=== PATIENT | male | born 1960 | race Caucasian/White ===

== ENCOUNTER 2017-02-05 11:15 | Outpatient (RCR) | payer OTHER ==
[~2017-02-05 11:15] MED LIST: ALB2.5NEB INH; ALBU17IN INH; ALDA25TA2 PO; AMLO10TA2 PO; ASPI1TAB PO; ASPI81CH PO; ATOR1TAB18 PO; ATOR40TA PO; CALC1CAP31 PO; CARV12.5 PO; CETI10TA PO; CLAR10CA3 PO; CORITAB5 PO; DOCU10CA PO; FLEX10TA2 PO; IMIT50TA PO; K-TA10TA2 PO; LIPI80TA PO; LISI40TAB PO; LOPR0.77 EX; MAGN400C PO; MAGN400T2 PO; METF500T PO; MIRA3350 PO; MULTLIQ7 PO; NYST5000 TOP; PROT1TAB2 PO; Pantoprazole Sodium PO; SENO8.6T10 PO; SUCR1TA PO; ZYRT10CA PO
== END 2017-02-08 ==
LOC: M PT 11:15
PROVIDERS: ATTEND Orthopaedic Surgery
DX: Z51.89 Encounter for other specified aftercare (principal); S50.01XA Contusion of right elbow, initial encounter; X58.XXXA Exposure to other specified factors, initial encounter; Y92.89 Other specified places as the place of occurrence of the external cause; Y93.89 Activity, other specified; Y99.8 Other external cause status

== ENCOUNTER 2017-03-07 11:00 | Outpatient (RCR) | payer OTHER | END 2017-03-10 | LOC: M PT 11:00 | PROVIDERS: ATTEND Orthopaedic Surgery | DX: Z51.89 Encounter for other specified aftercare (principal); S50.01XA Contusion of right elbow, initial encounter; X58.XXXA Exposure to other specified factors, initial encounter; Y92.89 Other specified places as the place of occurrence of the external cause; Y93.89 Activity, other specified; Y99.8 Other external cause status ==

== ENCOUNTER 2017-04-04 09:15 | Outpatient (RCR) | payer OTHER | END 2017-04-10 | LOC: M PT 09:15 | PROVIDERS: ATTEND Orthopaedic Surgery | DX: Z51.89 Encounter for other specified aftercare (principal); S50.01XA Contusion of right elbow, initial encounter; X58.XXXA Exposure to other specified factors, initial encounter; Y92.89 Other specified places as the place of occurrence of the external cause; Y93.89 Activity, other specified; Y99.8 Other external cause status ==

== ENCOUNTER 2017-04-11 11:09 | Outpatient (RCR) | payer OTHER | END 2017-04-12 12:02 | disposition home or self-care (01) | LOC: M PT 11:09 | PROVIDERS: ATTEND Orthopaedic Surgery | DX: Z51.89 Encounter for other specified aftercare (principal); S50.01XA Contusion of right elbow, initial encounter; S40.011A Contusion of right shoulder, initial encounter; X58.XXXA Exposure to other specified factors, initial encounter; Y92.9 Unspecified place or not applicable; Y93.9 Activity, unspecified; Y99.9 Unspecified external cause status ==

== ENCOUNTER → 2017-05-09 | Outpatient (REF) | payer OTHER ==
[~2017-05-09] MED LIST changes: -ATOR1TAB18 PO; -ATOR40TA PO; +ATOR40TA75 PO; +ATOR80TA59 PO; +FLUT1SPR2; +KETO10TAB PO; +MACR100C43 PO; -METF500T PO; +METF500T13 PO; +SENN8.6C PO; +ZOFR4TAB3 PO
[2017-05-09 12:13] LABS: BASO % 0.4 % (0.0-1.0); EOS % 0.7 % (0.0-3.0); LARGE UNSTAINED CELL # 0.2 K/mm3 (0.0-0.4); LARGE UNSTAINED CELL % 2.7 % (0.0-4.0); LYMPH # 1.4 K/mm3 (1.5-4.5); LYMPH % 22.4 % (24.0-44.0); MEAN CORPUSCULAR VOLUME 81.8 fl (80.0-96.0); MONO # 0.4 K/mm3 (0.0-0.8); MONO % 6.3 % (0.0-5.0); NEUTROPHILS # 4.2 K/mm3 (1.8-7.7); NEUTROPHILS % 67.5 % (36.0-66.0); PLATELET COUNT, AUTOMATED 219 k/mm3 (150-450); RED CELL DISTRIBUTION WIDTH 13.6 % (11.5-14.5); WHITE BLOOD COUNT 6.2 K/mm3 (4.0-10.0)
[2017-05-09 12:38] LABS: ALBUMIN 4.1 GM/DL (3.2-5.2); ALBUMIN/GLOBULIN RATIO 1.37 (1.00-1.93); ALKALINE PHOSPHATASE 86 U/L (45-117); ALT/SGPT 30 U/L (12-78); ANION GAP 4 MEQ/L (8-16); AST/SGOT 20 U/L (15-37); BILIRUBIN,TOTAL 0.8 MG/DL (0.2-1.0); BLOOD UREA NITROGEN 18 MG/DL (7-18); CALCIUM LEVEL 9.4 MG/DL (8.5-10.1); CARBON DIOXIDE LEVEL 33 MEQ/L (21-32); CHLORIDE LEVEL 105 MEQ/L (98-107); CHOLESTEROL LEVEL 110 MG/DL (<200); CREATININE FOR GFR 1.26 MG/DL (0.70-1.30); GLOMERULAR FILTRATION RATE > 60.0 (>56); GLUCOSE, FASTING 144 MG/DL (70-105); POTASSIUM SERUM 4.1 MEQ/L (3.5-5.1); SODIUM LEVEL 142 MEQ/L (136-145); TOTAL PROTEIN 7.1 GM/DL (6.4-8.2); TRIGLYCERIDES LEVEL 109 MG/DL (<150)
== END ==
LOC: M SFHCPLAZ 08:41
PROVIDERS: ATTEND Nurse Practitioner Family
DX: G47.33 Obstructive sleep apnea (adult) (pediatric) (principal); I10 Essential (primary) hypertension; E11.9 Type 2 diabetes mellitus without complications

== ENCOUNTER 2017-05-11 20:47 | Emergency (ER) | payer OTHER ==
[~2017-05-11] VITALS: Ht 185.4 cm; Wt 110.0 kg
[~2017-05-11 20:47] MED LIST changes: -FLUT1SPR2; -KETO10TAB PO; -MACR100C43 PO; -SENN8.6C PO; -ZOFR4TAB3 PO
[2017-05-11] MEDS ORDERED: CLAR10CA3 PO (21:06)
[2017-05-11] MEDS ORDERED: SENN8.6C PO (21:06)
[2017-05-11] MEDS ORDERED: SUCR1TA PO (21:06)
[2017-05-11] MEDS ORDERED: ONDANSETRON 4MG/2ML VIAL (J2405) IV ONE (22:15)
[2017-05-11] MEDS ORDERED: NS 500 ML IV ONE (22:15)
[2017-05-11] MEDS ORDERED: fentaNYL 100 MCG/2 ML INJECTION (J3010) IV ONE (22:15)
[2017-05-11 23:01] LABS: BASO % 0.4 % (0.0-1.0); EOS # 0.1 K/mm3 (0.0-0.50); EOS % 1.2 % (0.0-3.0); LARGE UNSTAINED CELL # 0.1 K/mm3 (0.0-0.4); LARGE UNSTAINED CELL % 2.7 % (0.0-4.0); LYMPH # 2.1 K/mm3 (1.5-4.5); LYMPH % 38.3 % (24.0-44.0); MEAN CORPUSCULAR HEMOGLOBIN 26.9 pg (27.0-33.0); MEAN CORPUSCULAR HGB CONC 34.2 g/dl (32.0-36.5); MEAN CORPUSCULAR VOLUME 78.8 fl (80.0-96.0); MONO # 0.4 K/mm3 (0.0-0.8); MONO % 7.2 % (0.0-5.0); NEUTROPHILS # 2.6 K/mm3 (1.8-7.7); NEUTROPHILS % 50.2 % (36.0-66.0); PLATELET COUNT, AUTOMATED 191 k/mm3 (150-450); RED CELL DISTRIBUTION WIDTH 13.8 % (11.5-14.5); WHITE BLOOD COUNT 5.2 K/mm3 (4.0-10.0)
[2017-05-11 23:10] LABS: INR 1.11
[2017-05-11 23:24] LABS: ALBUMIN 3.6 GM/DL (3.2-5.2); ALBUMIN/GLOBULIN RATIO 1.29 (1.00-1.93); ALKALINE PHOSPHATASE 75 U/L (45-117); ALT/SGPT 25 U/L (12-78); ANION GAP 6 MEQ/L (8-16); AST/SGOT 13 U/L (15-37); BILIRUBIN,DIRECT 0.2 MG/DL (0.0-0.2); BILIRUBIN,TOTAL 0.6 MG/DL (0.2-1.0); BLOOD UREA NITROGEN 21 MG/DL (7-18); CALCIUM LEVEL 9.1 MG/DL (8.5-10.1); CARBON DIOXIDE LEVEL 30 MEQ/L (21-32); CHLORIDE LEVEL 107 MEQ/L (98-107); CREATININE FOR GFR 1.16 MG/DL (0.70-1.30); GLOMERULAR FILTRATION RATE > 60.0 (>56); GLUCOSE, FASTING 100 MG/DL (70-105); POTASSIUM SERUM 3.8 MEQ/L (3.5-5.1); SODIUM LEVEL 143 MEQ/L (136-145); TOTAL PROTEIN 6.4 GM/DL (6.4-8.2)
[2017-05-12] MEDS ORDERED: ISOVUE-370 76% 100ML VIAL (Q9967) As Ordered ONE (00:38)
--- NOTE | 2017-05-12 01:30 | REPUSA ---
CT of the abdomen and pelvis with contrast Clinical statement: Pain. Technique: Multiple axial CT images were obtained from the base of the lungs through the floor of the pelvis utilizing 5 mm axial slices after administration of nonionic intravenous contrast. Coronal an d sagittal reconstructions were also obtained. Comparison: 03/06/2016. Findings: Chest: The visualized lung bases are clear. Abdomen: The liver, pancreas, kidneys, gallbladder, and adrenal glands are unremarkable. The spleen c urrently measures 14.1 cm in maximal diameter, and is otherwise unremarkable. There are several large bilateral renal cysts. The aorta is within normal limits. There is no evidence of abdominal lymphade nopathy or ascites. Pelvis: The bowel is unremarkable, with no obstructive or inflammatory changes. The urinary bladder i s within normal limits. The other pelvic structures appear grossly intact. There is no evidence of pe lvic lymphadenopathy or ascites. Bones: There are no suspicious osseous abnormalities seen. Impression: No acute abnormality to explain the patient's pain. The spleen appears unremarkable. Simp le bilateral renal cysts.
[2017-05-12 02:10] VITALS: BP 119/73
[2017-05-12] MEDS ORDERED: ZOFR4TAB3 PO (02:25)
== END 2017-05-12 02:51 | disposition home or self-care (01) ==
LOC: M ED 20:47
DX: R10.12 Left upper quadrant pain (principal); I10 Essential (primary) hypertension; Z79.82 Long term (current) use of aspirin; Z79.899 Other long term (current) drug therapy; Z79.84 Long term (current) use of oral hypoglycemic drugs; Z88.5 Allergy status to narcotic agent; Z88.6 Allergy status to analgesic agent

== ENCOUNTER 2017-06-13 17:28 | Emergency (ER) | payer OTHER ==
[~2017-06-13] VITALS: Ht 188 cm; Wt 111.4 kg
[~2017-06-13 17:28] MED LIST changes: -FLUT1SPR2; -KETO10TAB PO; -MACR100C43 PO
[2017-06-13] MEDS ORDERED: KETOROLAC 30 MG/ML VIAL (J1885) IV ONE (18:00)
[2017-06-13] MEDS ORDERED: METOCLOPRAMIDE INJ 10MG/2ML VIAL (J2765) IV ONE (18:00)
[2017-06-13] MEDS ORDERED: NS 500 ML IV ONE (18:00)
[2017-06-13 18:14] LABS: BASO % 0.4 % (0.0-1.0); EOS # 0.1 K/mm3 (0.0-0.50); EOS % 1.2 % (0.0-3.0); LARGE UNSTAINED CELL # 0.2 K/mm3 (0.0-0.4); LARGE UNSTAINED CELL % 3.2 % (0.0-4.0); LYMPH # 2.1 K/mm3 (1.5-4.5); LYMPH % 29.2 % (24.0-44.0); MEAN CORPUSCULAR HGB CONC 34.3 g/dl (32.0-36.5); MEAN CORPUSCULAR VOLUME 78.6 fl (80.0-96.0); MONO # 0.5 K/mm3 (0.0-0.8); MONO % 7.5 % (0.0-5.0); NEUTROPHILS # 3.7 K/mm3 (1.8-7.7); NEUTROPHILS % 58.5 % (36.0-66.0); PLATELET COUNT, AUTOMATED 218 k/mm3 (150-450); RED CELL DISTRIBUTION WIDTH 13.6 % (11.5-14.5); WHITE BLOOD COUNT 6.4 K/mm3 (4.0-10.0)
[2017-06-13 18:41] LABS: ERYTHROCYTE SEDIMENTATION RATE 7 mm/hr (0-20)
--- NOTE | 2017-06-13 18:50 | REPUSA ---
HISTORY: HEADACHE. TECHNIQUE: Axial CT of head without contrast. DLP= 836.2 mGy-cm FINDINGS: Ventricles and sulci are of normal size for this age group. Azar-white matter differentiati on is intact. There is no evidence of intracranial mass, mass effect, hemorrhage, or cystic lesion id entified. There is no detectable evidence of infarct. No bony lesions are seen in the calvarium or sk ull base. Paranasal sinuses and mastoid sinuses are clear. IMPRESSION: Negative noncontrast head CT examination.
[2017-06-13 20:01] LABS: CALCIUM LEVEL 9.1 MG/DL (8.5-10.1); CREATININE FOR GFR 1.57 MG/DL (0.70-1.30); GLOMERULAR FILTRATION RATE 48.9 (>56); POTASSIUM SERUM 3.8 MEQ/L (3.5-5.1)
[2017-06-13 20:24] VITALS: BP 123/73
== END 2017-06-13 20:26 | disposition home or self-care (01) ==
LOC: M ED 17:28
DX: G43.909 Migraine, unspecified, not intractable, without status migrainosus (principal); E11.9 Type 2 diabetes mellitus without complications; Z79.82 Long term (current) use of aspirin; Z79.84 Long term (current) use of oral hypoglycemic drugs; Z79.899 Other long term (current) drug therapy; Z88.6 Allergy status to analgesic agent; Z88.8 Allergy status to other drugs, medicaments and biological substances; Z88.5 Allergy status to narcotic agent
CPT/HCPCS: 70450; 80048; 85025; 85652; 96361; 96374; 96375; 99283; J1885; J2765

== ENCOUNTER → 2017-06-13 | Outpatient (REF) | payer OTHER ==
[~2017-06-13] MED LIST changes: +FLUT1SPR2; +KETO10TAB PO; +MACR100C43 PO; +SENN8.6C PO; +ZOFR4TAB3 PO
== END ==
LOC: M SFHCPLAZ 16:55
PROVIDERS: ATTEND Family Medicine
DX: R35.0 Frequency of micturition (principal)

== ENCOUNTER 2017-08-18 15:18 | Emergency (ER) | payer OTHER ==
[~2017-08-18] VITALS: Ht 185.4 cm; Wt 105.0 kg
[2017-08-18] MEDS ORDERED: FLUT1SPR2 (15:42)
[2017-08-18] MEDS ORDERED: KETOROLAC 30 MG/ML VIAL (J1885) IV ONE (19:00)
[2017-08-18] MEDS ORDERED: ONDANSETRON 4MG/2ML VIAL (J2405) IV ONE (19:15)
[2017-08-18 19:32] LABS: BASO % 0.1 % (0.0-1.0); EOS # 0.1 10^3/uL (0.0-0.50); EOS % 1.3 % (0.0-3.0); IMMATURE GRANULOCYTE % 0.1 % (0-0); LYMPH # 1.7 10^3/uL (1.5-4.5); LYMPH % 25.5 % (24.0-44.0); MEAN CORPUSCULAR HGB CONC 32.3 g/dl (32.0-36.5); MEAN CORPUSCULAR VOLUME 80.5 fl (80.0-96.0); MONO # 0.5 10^3/uL (0.0-0.8); MONO % 7.8 % (0.0-5.0); NEUTROPHILS # 4.3 10^3/uL (1.8-7.7); NEUTROPHILS % 65.2 % (36.0-66.0); PLATELET COUNT, AUTOMATED 222 10^3/uL (150-450); RED CELL DISTRIBUTION WIDTH 14.3 % (11.5-14.5); WHITE BLOOD COUNT 6.7 10^3/uL (4.0-10.0)
[2017-08-18 19:37] LABS: ADD MANUAL DIFFER NO; DIFF SLIDE NUMBER 166
[2017-08-18 19:55] LABS: ANION GAP 7 MEQ/L (8-16); BLOOD UREA NITROGEN 22 MG/DL (7-18); CARBON DIOXIDE LEVEL 31 MEQ/L (21-32); CHLORIDE LEVEL 105 MEQ/L (98-107); CREATININE FOR GFR 1.21 MG/DL (0.70-1.30); GLOMERULAR FILTRATION RATE > 60.0 (>56); GLUCOSE, FASTING 108 MG/DL (70-105); POTASSIUM SERUM 3.7 MEQ/L (3.5-5.1); SODIUM LEVEL 143 MEQ/L (136-145)
--- NOTE | 2017-08-18 20:00 | REPUSA ---
CT of the abdomen and pelvis without contrast Clinical statement: Pain. Technique: Multiple axial CT images were obtained from the base of the lungs to the floor of the pelv is utilizing 5 mm axial slices without administration of contrast. Coronal and sagittal reconstructio ns were also obtained. Comparison: 05/12/2017. Findings: Chest: The visualized lung bases are clear. Abdomen: The kidneys are normal in size bilaterally. Bilateral simple renal cysts are stable. There i s no evidence of hydronephrosis. There is a 2 mm stone in the left kidney. The liver, spleen, pancrea s, gallbladder and adrenal glands are unremarkable. The aorta demonstrates normal caliber and contour . There is no abdominal lymphadenopathy or ascites. Pelvis: The bowel is unremarkable, with no obstructive or inflammatory changes. The appendix is josh l. The urinary bladder is within normal limits. There is no pelvic lymphadenopathy or ascites. The ot her pelvic structures appear unremarkable. Bones: There are no suspicious osseous abnormalities seen. Impression: 1. No focal abnormality to explain the patient's pain. 2. Nonobstructing left renal nephrolithiasis. Bilateral simple renal cysts. 3. No obstructive or inflammatory bowel changes.
[2017-08-18] MEDS ORDERED: MACR100C43 PO (20:22)
[2017-08-18] MEDS ORDERED: KETO10TAB PO (20:22)
[2017-08-18] MEDS ORDERED: NITROFURANTOIN (MACROBID) 100 MG CAP PO ONE (20:30)
[2017-08-18 20:44] VITALS: BP 102/65
== END 2017-08-18 20:42 | disposition home or self-care (01) ==
LOC: M ED 15:18
DX: N20.0 Calculus of kidney (principal); R10.9 Unspecified abdominal pain; N39.0 Urinary tract infection, site not specified; E11.9 Type 2 diabetes mellitus without complications; Z87.442 Personal history of urinary calculi; J45.909 Unspecified asthma, uncomplicated; H54.8 Legal blindness, as defined in USA; Z79.82 Long term (current) use of aspirin; Z79.84 Long term (current) use of oral hypoglycemic drugs; Z79.899 Other long term (current) drug therapy; Z88.5 Allergy status to narcotic agent; Z88.8 Allergy status to other drugs, medicaments and biological substances
CPT/HCPCS: 74176; 80048; 81001; 85025; 96374; 96375; 99283; J1885; J2405

== ENCOUNTER → 2017-09-26 | Outpatient (REF) | payer OTHER ==
[~2017-09-26] MED LIST changes: +FLUT1SPR2; +KETO10TAB PO; +MACR100C43 PO
[2017-09-26 13:13] LABS: ALBUMIN 3.9 GM/DL (3.2-5.2); ALBUMIN/GLOBULIN RATIO 1.34 (1.00-1.93); ALKALINE PHOSPHATASE 88 U/L (45-117); ALT/SGPT 30 U/L (12-78); ANION GAP 7 MEQ/L (8-16); AST/SGOT 18 U/L (7-37); BILIRUBIN,TOTAL 0.9 MG/DL (0.2-1.0); BLOOD UREA NITROGEN 15 MG/DL (7-18); CALCIUM LEVEL 9.1 MG/DL (8.5-10.1); CARBON DIOXIDE LEVEL 33 MEQ/L (21-32); CHLORIDE LEVEL 101 MEQ/L (98-107); CREATININE FOR GFR 1.13 MG/DL (0.70-1.30); GLOMERULAR FILTRATION RATE > 60.0 (>56); GLUCOSE, FASTING 135 MG/DL (70-105); POTASSIUM SERUM 3.8 MEQ/L (3.5-5.1); SODIUM LEVEL 141 MEQ/L (136-145); TOTAL PROTEIN 6.8 GM/DL (6.4-8.2)
== END ==
LOC: M SFHCPLAZ 10:42
PROVIDERS: ATTEND Nurse Practitioner Family
DX: I10 Essential (primary) hypertension (principal); E11.9 Type 2 diabetes mellitus without complications

== ENCOUNTER → 2017-10-01 | Outpatient (REF) | payer OTHER | LOC: M SMT 13:08 | PROVIDERS: ATTEND Nurse Practitioner Family | DX: N20.0 Calculus of kidney (principal) ==

== ENCOUNTER → 2017-10-08 | Outpatient (CLI) | payer OTHER ==
--- NOTE | 2017-10-08 12:26 | REP ---
Scrotal sonography: History: Testicular cyst. No comparison sonography. Findings: There is no evidence of intratesticular mass on either side. Right testis dimensions are 4.5 x 2.9 x 3.3 cm. Left testicular dimensions are 5.0 x 2.6 x 3.3 cm. There is a 0.4 cm cyst in the head of the epididymis on the left. There are two extra testicular cysts in the left hemiscrotum. These measure 3.2 x 1.6 x 1.6 cm and 3.7 x 1.9 x 3.2 cm. These appear to be simple cysts sonographically. There are small bilateral hydroceles. The cysts on the left may be related to septated hydrocele. There are mobile scrotoliths in the left hemiscrotum. There appear to be three of these. Testicular Doppler flow is normal to both testes. Resistive indices are 0.64 on the right and 0.66 on the left. Impression: Extra testicular cysts left hemiscrotum. Small bilateral hydroceles. No other significant abnormality. Signed by Clement Guo MD 10/08/2017 04:16 P
== END ==
LOC: M RAD 10:17
PROVIDERS: ATTEND Nurse Practitioner Family
DX: N43.3 Hydrocele, unspecified (principal); N44.2 Benign cyst of testis

== ENCOUNTER 2017-12-10 10:32 | Outpatient (RCR) | payer OTHER | END 2017-12-11 | LOC: M PT 10:32 | DX: Z51.89 Encounter for other specified aftercare (principal); M51.36 Other intervertebral disc degeneration, lumbar region; M47.896 Other spondylosis, lumbar region | CPT/HCPCS: 97110 ==

== ENCOUNTER 2017-12-17 10:15 | Outpatient (RCR) | payer OTHER | END 2018-01-08 | LOC: M PT 10:15 | DX: Z51.89 Encounter for other specified aftercare (principal); M46.1 Sacroiliitis, not elsewhere classified | CPT/HCPCS: 97010 ==

== ENCOUNTER → 2018-03-13 | Outpatient (REF) | payer OTHER ==
[2018-03-13 18:02] LABS: HEMATOCRIT 37.3 % (42.0-52.0); HEMOGLOBIN 11.9 g/dl (13.5-17.5); MEAN CORPUSCULAR HEMOGLOBIN 24.4 pg (27.0-33.0); MEAN CORPUSCULAR HGB CONC 31.9 g/dl (32.0-36.5); MEAN CORPUSCULAR VOLUME 76.4 fl (80.0-96.0); PLATELET COUNT, AUTOMATED 220 10^3/uL (150-450); RED BLOOD COUNT 4.88 10^6/uL (4.30-6.10); RED CELL DISTRIBUTION WIDTH 14.6 % (11.5-14.5); WHITE BLOOD COUNT 6.6 10^3/uL (4.0-10.0)
[2018-03-13 18:09] LABS: MAGNESIUM LEVEL 1.9 MG/DL (1.8-2.4)
== END ==
LOC: M SFHCPLAZ 14:39
DX: E11.9 Type 2 diabetes mellitus without complications (principal); E83.40 Disorders of magnesium metabolism, unspecified
CPT/HCPCS: 83735

== ENCOUNTER → 2018-04-09 | Outpatient (REF) | payer OTHER ==
[2018-04-10 11:18] LABS: FERRITIN 6 NG/ML (26-388); IRON (FE) 33 UG/DL (65-175); PERCENT SATURATION 9.3 % (19.7-50.0); TOTAL IRON BINDING CAPACITY 355 UG/DL (250-450)
== END ==
LOC: M LAB REF 10:00
DX: D64.9 Anemia, unspecified (principal)

== ENCOUNTER → 2018-07-25 | Outpatient (REF) | payer OTHER ==
[2018-07-25 12:53] LABS: ALBUMIN 3.8 GM/DL (3.2-5.2); ALBUMIN/GLOBULIN RATIO 1.41 (1.00-1.93); ALKALINE PHOSPHATASE 83 U/L (45-117); ALT/SGPT 30 U/L (12-78); ANION GAP 8 MEQ/L (8-16); AST/SGOT 23 U/L (7-37); BILIRUBIN,TOTAL 0.8 MG/DL (0.2-1.0); BLOOD UREA NITROGEN 14 MG/DL (7-18); CALCIUM LEVEL 9.2 MG/DL (8.5-10.1); CARBON DIOXIDE LEVEL 31 MEQ/L (21-32); CHLORIDE LEVEL 104 MEQ/L (98-107); CHOLESTEROL LEVEL 93 MG/DL (<200); CHOLESTEROL RISK RATIO 2.583 (<5); CREATININE FOR GFR 1.16 MG/DL (0.70-1.30); GLOMERULAR FILTRATION RATE > 60.0 (>56); GLUCOSE, FASTING 125 MG/DL (70-100); HDL CHOLESTEROL 36 MG/DL (>40); LDL CHOLESTEROL 33 MG/DL (<100); NON-HDL-C 57 MG/DL; POTASSIUM SERUM 3.3 MEQ/L (3.5-5.1); SODIUM LEVEL 143 MEQ/L (136-145); TOTAL PROTEIN 6.5 GM/DL (6.4-8.2); TRIGLYCERIDES LEVEL 120 MG/DL (<150)
[2018-07-25 12:54] LABS: ESTIMATED AVERAGE GLUCOSE 148 MG/DL (60-110); HEMOGLOBIN A1c 6.8 %
== END ==
LOC: M SFHCPLAZ 09:17
DX: E11.9 Type 2 diabetes mellitus without complications (principal); I10 Essential (primary) hypertension; E83.40 Disorders of magnesium metabolism, unspecified; N18.3 Chronic kidney disease, stage 3 (moderate); E78.5 Hyperlipidemia, unspecified

== ENCOUNTER → 2018-08-05 | Outpatient (REF) | payer OTHER | LOC: M LAB REF 18:27 | DX: D22.5 Melanocytic nevi of trunk (principal); L56.8 Other specified acute skin changes due to ultraviolet radiation | CPT/HCPCS: 88305 ==

== ENCOUNTER → 2018-11-17 | Outpatient (CLI) | payer OTHER ==
[~2018-11-17] MED LIST changes: -AMLO10TA2 PO; +AMLO10TA5 PO; +ZOFR4TAB14 PO; -ZOFR4TAB3 PO
--- NOTE | 2018-11-18 06:13 | REP ---
Clinical: Chronic renal disease stage II Technique: real time desai scale ultrasound examination using curved array transducer. Findings: The bilateral kidneys demonstrate hyperechoic echotexture and scattered cystic changes without hydronephrosis, obvious nephrolithiasis or pericholecystic fluid. Right kidney measures 12.8 x 5.5 x 6.8 cm and includes 3 cm simple upper pole cyst and 2.8 cm simple lower pole cyst. Left kidney measures 13.2 x 5.5 x 5.1 cm and includes 5.7 cm exophytic mid pole cyst, 4.6 cm medial mid pole cyst and 1.5 cm perihilar cyst. Bladder is without wall thickening or gross abnormality. Impression: Chronic renal disease with few scattered bilateral cysts. No hydronephrosis. Electronically Signed by Horace Walden MD 11/18/2018 06:05 A
== END ==
LOC: M RAD 09:59
PROVIDERS: ATTEND Internal Medicine Nephrology
DX: N18.2 Chronic kidney disease, stage 2 (mild) (principal); N28.1 Cyst of kidney, acquired

== ENCOUNTER → 2018-12-08 | Outpatient (REF) | payer OTHER ==
[2018-12-08 19:00] LABS: MALB URINE SIEMENS 49.5 MG/L; MAU/CREAT RATIO 28.2 MCG/MG (0.0-30.0)
[2018-12-08 19:25] LABS: HEMOGLOBIN A1c 7.3 %
== END ==
LOC: M SFHCPLAZ 15:48
PROVIDERS: ATTEND Family Medicine
DX: E11.9 Type 2 diabetes mellitus without complications (principal)

== ENCOUNTER → 2019-05-27 | Outpatient (REF) | payer OTHER ==
[~2019-05-27] MED LIST changes: -ASPI1TAB PO; -ASPI81CH PO; +ASPI81CH49 PO; +ASPI81TA26 PO; +LISI40TA52 PO; -LISI40TAB PO
== END ==
LOC: M SFHCPLAZ 11:15
PROVIDERS: ATTEND Family Medicine
DX: R10.9 Unspecified abdominal pain (principal)

== ENCOUNTER → 2019-07-24 | Outpatient (REF) | payer OTHER ==
[2019-07-24 12:35] LABS: ALT/SGPT 32 U/L (12-78); BILIRUBIN,TOTAL 1.1 MG/DL (0.2-1.0); BLOOD UREA NITROGEN 24 MG/DL (7-18); CALCIUM LEVEL 9.6 MG/DL (8.5-10.1); CARBON DIOXIDE LEVEL 31 MEQ/L (21-32); CHLORIDE LEVEL 105 MEQ/L (98-107); CHOLESTEROL LEVEL 87 MG/DL (<200); CHOLESTEROL RISK RATIO 2.485 (<5); CREATININE FOR GFR 1.23 MG/DL (0.70-1.30); GLOMERULAR FILTRATION RATE > 60.0 (>56); GLUCOSE, FASTING 138 MG/DL (70-100); HDL CHOLESTEROL 35 MG/DL (>40); LDL CHOLESTEROL 32 MG/DL (<100); NON-HDL-C 52 MG/DL; POTASSIUM SERUM 3.5 MEQ/L (3.5-5.1); SODIUM LEVEL 144 MEQ/L (136-145); TOTAL PROTEIN 6.2 GM/DL (6.4-8.2); TRIGLYCERIDES LEVEL 102 MG/DL (<150)
[2019-07-24 13:08] LABS: MAU/CREAT RATIO 15.2 MCG/MG (0.0-30.0)
[2019-07-24 14:21] LABS: HEMOGLOBIN A1c 6.6 %
[2019-07-29 10:56] LABS: THYROID STIMULATING HORMONE 0.569 uIU/ML (0.358-3.740)
[2019-07-29 10:58] LABS: VITAMIN B12 LEVEL 476 PG/ML (247-911)
[2019-07-29 10:59] LABS: FOLATE 13.3 NG/ML (>5.4)
== END ==
LOC: M SFHCPLAZ 09:06
PROVIDERS: ATTEND Family Medicine
DX: N18.3 Chronic kidney disease, stage 3 (moderate) (principal); E78.5 Hyperlipidemia, unspecified; I10 Essential (primary) hypertension; E11.29 Type 2 diabetes mellitus with other diabetic kidney complication

== ENCOUNTER → 2019-10-28 | Outpatient (REF) | payer OTHER | LOC: M SFHCPLAZ 15:05 | PROVIDERS: ATTEND Family Medicine | DX: E11.29 Type 2 diabetes mellitus with other diabetic kidney complication (principal); I12.9 Hypertensive chronic kidney disease with stage 1 through stage 4 chronic kidney disease, or unspecified chronic kidney disease; E80.6 Other disorders of bilirubin metabolism ==

== ENCOUNTER → 2019-12-09 | Outpatient (REF) | payer OTHER ==
[2019-12-09 09:31] LABS: HEMATOCRIT 44.9 % (42.0-52.0); HEMOGLOBIN 14.9 g/dl (13.5-17.5); MEAN CORPUSCULAR HEMOGLOBIN 28.8 pg (27.0-33.0); MEAN CORPUSCULAR HGB CONC 33.2 g/dl (32.0-36.5); MEAN CORPUSCULAR VOLUME 86.7 fl (80.0-96.0); PLATELET COUNT, AUTOMATED 186 10^3/uL (150-450); RED BLOOD COUNT 5.18 10^6/uL (4.30-6.10); WHITE BLOOD COUNT 6.6 10^3/uL (4.0-10.0)
[2019-12-09 10:01] LABS: ALBUMIN 3.9 GM/DL (3.2-5.2); ALT/SGPT 24 U/L (12-78); BILIRUBIN,TOTAL 1.1 MG/DL (0.2-1.0); BLOOD UREA NITROGEN 18 MG/DL (7-18); CALCIUM LEVEL 8.9 MG/DL (8.5-10.1); CARBON DIOXIDE LEVEL 32 MEQ/L (21-32); CHLORIDE LEVEL 107 MEQ/L (98-107); CREATININE FOR GFR 1.08 MG/DL (0.70-1.30); GLOMERULAR FILTRATION RATE > 60.0 (>56); GLUCOSE, FASTING 122 MG/DL (70-100); POTASSIUM SERUM 3.7 MEQ/L (3.5-5.1); SODIUM LEVEL 143 MEQ/L (136-145); TOTAL PROTEIN 6.5 GM/DL (6.4-8.2)
[2019-12-09 10:20] LABS: HEMOGLOBIN A1c 6.4 %
[2019-12-09 10:26] LABS: HEPATITIS B SURFACE ANTIGEN NEGATIVE (NEGATIVE)
[2019-12-09 11:38] LABS: HEPATITIS B CORE ANTIBODY IGM NEGATIVE (NEGATIVE); HEPATITIS C VIRUS ABY INDEX < 0.0 INDEX (<0.8)
[2019-12-09 11:40] LABS: HEPATITIS A ANTIBODY IGM NEGATIVE (NEGATIVE)
== END ==
LOC: M SFHCPLAZ 07:23
PROVIDERS: ATTEND Student in an Organized Health Care Education/Training Program
DX: G47.33 Obstructive sleep apnea (adult) (pediatric) (principal); I12.9 Hypertensive chronic kidney disease with stage 1 through stage 4 chronic kidney disease, or unspecified chronic kidney disease; E80.6 Other disorders of bilirubin metabolism; E11.29 Type 2 diabetes mellitus with other diabetic kidney complication

== ENCOUNTER → 2020-01-13 | Outpatient (REF) | payer OTHER | LOC: M SFHCPLAZ 10:12 | PROVIDERS: ATTEND Family Medicine | DX: Z53.9 Procedure and treatment not carried out, unspecified reason (principal) ==

== ENCOUNTER → 2020-04-26 | Outpatient (CLI) | payer OTHER ==
[~2020-04-26] MED LIST changes: -AMLO10TA5 PO; +AMLO1TAB25 PO; +FLON1SPR NARES; +LISI40TA4 PO; +PANT40TA29 PO; +SPIR-10 PO; +TAMS1CAP17 PO; +VENTAER INH; +VITA-122 PO
== END ==
LOC: M LABSMTC 11:14
PROVIDERS: ATTEND Anesthesiology
DX: Z01.818 Encounter for other preprocedural examination (principal); Z11.59 Encounter for screening for other viral diseases
CPT/HCPCS: C9803; U0003

== ENCOUNTER 2020-04-29 11:16 | Day surgery (SDC) | payer OTHER ==
[~2020-04-29] VITALS: Ht 185.4 cm; Wt 103.8 kg
[~2020-04-29 11:16] MED LIST changes: +AMLO10TA5 PO; -AMLO1TAB25 PO; +LISI40TA PO; -LISI40TA4 PO; +NS 1,000 ML IV ONE; -PANT40TA29 PO; +PANT40TA3 PO
[2020-04-29] MEDS ORDERED: propofoL 200 MG/20 ML VIAL As Ordered ONE ×2 (12:16→12:50)
[2020-04-29] MEDS ORDERED: LIDOCAINE 2% 100MG/5ML SDV (FOR ANES.) As Ordered ONE (12:16)
--- NOTE | 2020-04-29 13:21 | ROOR ---
Patient Name: Tremaine Houston Procedure Date: 04/29/2020 12:19 PM Date of : 1960 Age: 59 Room: [facility] Gender: Male Note Status: Finalized Procedure: Upper GI endoscopy Indications: Follow-up of gastro-esophageal reflux disease Providers: Chong Salinas MD Referring MD: BIANCA JUAREZ MD Requesting Provider: Medicines: Monitored Anesthesia Care Complications: No immediate complications. Procedure: Pre-Anesthesia Assessment: - Prior to the procedure, a History and Physical was performed, and patient medications and allergies were reviewed. The patient is competent. The risks and benefits of the procedure and the sedation options and risks were discussed with the patient. All questions were answered and informed consent was obtained. Patient identification and proposed procedure were verified by the physician, the nurse and the anesthesiologist in the procedure room. Mental Status Examination: alert and oriented. Airway Examination: normal oropharyngeal airway and neck mobility. Respiratory Examination: clear to auscultation. CV Examination: normal. Prophylactic Antibiotics: The patient does not require prophylactic antibiotics. Prior Anticoagulants: The patient has taken no previous anticoagulant or antiplatelet agents. ASA Grade Assessment: II - A patient with mild systemic disease. After reviewing the risks and benefits, the patient was deemed in satisfactory condition to undergo the procedure. The anesthesia plan was to use monitored anesthesia care (MAC). Immediately prior to administration of medications, the patient was re-assessed for adequacy to receive sedatives. The heart rate, respiratory rate, oxygen saturations, blood pressure, adequacy of pulmonary ventilation, and response to care were monitored throughout the procedure. The physical status of the patient was re-assessed after the procedure. The Endoscope was introduced through the mouth, and advanced to the second part of duodenum. The upper GI endoscopy was accomplished without difficulty. The patient tolerated the procedure well. Findings: Circumferential salmon-colored mucosa was present from 39 to 41 cm. No other visible abnormalities were present. The maximum longitudinal extent of these esophageal mucosal changes was 2 cm in length. Biopsies were taken with a cold forceps for histology. Verification of patient identification for the specimen was done by the physician and nurse using the patient's name, date and medical record number. Estimated blood loss was minimal. Scattered moderate inflammation characterized by erythema, granularity and linear erosions was found in the gastric antrum. Biopsies were taken with a cold forceps for Helicobacter pylori testing. The duodenal bulb and second portion of the duodenum were normal. Impression: - [place]-colored mucosa suggestive of short-segment Chen's esophagus. Biopsied. - Gastritis. Biopsied. - Normal duodenal bulb and second portion of the duodenum. Recommendation: - Patient has a contact number available for emergencies. The signs and symptoms of potential delayed complications were discussed with the patient. Return to normal activities tomorrow. Written discharge instructions were provided to the patient. - High fiber diet. - Continue present medications. - Await pathology results. - Telephone GI clinic for pathology results in 2 weeks. - Return to primary care physician. Chong Salinas MD Chong Salinas MD 04/29/2020 1:21:27 PM Electronically signed by Chong Salinas MD Number of Addenda: 0 Note Initiated On: 04/29/2020 12:19 PM Estimated Blood Loss: Estimated blood loss was minimal.
--- NOTE | 2020-04-29 13:24 | ROOR ---
Patient Name: Tremaine Houston Procedure Date: 04/29/2020 12:20 PM Date of : 1960 Age: 59 Room: [facility] Gender: Male Note Status: Finalized Procedure: Colonoscopy Indications: High risk colon cancer surveillance: Personal history of colonic polyps Providers: Chong Salinas MD Referring MD: BIANCA JUAREZ MD Requesting Provider: Medicines: Monitored Anesthesia Care Complications: No immediate complications. Procedure: Pre-Anesthesia Assessment: - Prior to the procedure, a History and Physical was performed, and patient medications and allergies were reviewed. The patient is competent. The risks and benefits of the procedure and the sedation options and risks were discussed with the patient. All questions were answered and informed consent was obtained. Patient identification and proposed procedure were verified by the physician, the nurse and the anesthesiologist in the procedure room. Mental Status Examination: alert and oriented. Airway Examination: normal oropharyngeal airway and neck mobility. Respiratory Examination: clear to auscultation. CV Examination: normal. Prophylactic Antibiotics: The patient does not require prophylactic antibiotics. Prior Anticoagulants: The patient has taken no previous anticoagulant or antiplatelet agents. ASA Grade Assessment: II - A patient with mild systemic disease. After reviewing the risks and benefits, the patient was deemed in satisfactory condition to undergo the procedure. The anesthesia plan was to use monitored anesthesia care (MAC). Immediately prior to administration of medications, the patient was re-assessed for adequacy to receive sedatives. The heart rate, respiratory rate, oxygen saturations, blood pressure, adequacy of pulmonary ventilation, and response to care were monitored throughout the procedure. The physical status of the patient was re-assessed after the procedure. The Colonoscope was introduced through the anus and advanced to the terminal ileum, with identification of the appendiceal orifice and IC valve. The colonoscopy was performed without difficulty. The patient tolerated the procedure well. The quality of the bowel preparation was good. The terminal ileum, ileocecal valve, appendiceal orifice, and rectum were photographed. Scope insertion time was 3 minutes. Scope withdrawal time was 10 minutes. The total duration of the procedure was 14 minutes. Findings: The perianal and digital rectal examinations were normal. The terminal ileum appeared normal. Six sessile polyps were found in the ascending colon. The polyps were 4 to 10 mm in size. These polyps were removed with a hot snare. Resection and retrieval were complete. To close a defect after polypectomy, one hemostatic clip was successfully placed. There was no bleeding at the end of the procedure. Four sessile polyps were found in the recto-sigmoid colon. The polyps were 6 to 8 mm in size. These polyps were removed with a hot snare. Resection and retrieval were complete. Verification of patient identification for the specimen was done by the physician and nurse using the patient's name, date and medical record number. Estimated blood loss was minimal. Non-bleeding external and internal hemorrhoids were found during retroflexion. The hemorrhoids were medium-sized. Impression: - The examined portion of the ileum was normal. - Six 4 to 10 mm polyps in the ascending colon, removed with a hot snare. Resected and retrieved. Clip was placed. - Four 6 to 8 mm polyps at the recto-sigmoid colon, removed with a hot snare. Resected and retrieved. - Non-bleeding external and internal hemorrhoids. Recommendation: - Patient has a contact number available for emergencies. The signs and symptoms of potential delayed complications were discussed with the patient. Return to normal activities tomorrow. Written discharge instructions were provided to the patient. - High fiber diet. - Continue present medications. - Await pathology results. - Repeat colonoscopy in 3 - 5 years for surveillance of multiple polyps. - Telephone GI clinic for pathology results in 2 weeks. - Return to primary care physician. Chong Salinas MD Chong Salinas MD 04/29/2020 1:24:29 PM Electronically signed by Chong Salinas MD Number of Addenda: 0 Note Initiated On: 04/29/2020 12:20 PM Estimated Blood Loss: Estimated blood loss was minimal.
[2020-04-29 13:40] VITALS: BP 157/87
== END 2020-04-29 13:48 | disposition home or self-care (01) ==
LOC: M OPP 11:16
PROVIDERS: ATTEND Internal Medicine Gastroenterology
DX: K63.5 Polyp of colon (principal); K64.8 Other hemorrhoids; Z86.010 Personal history of colon polyps; K22.8 Other specified diseases of esophagus; K29.70 Gastritis, unspecified, without bleeding; K21.9 Gastro-esophageal reflux disease without esophagitis; Z79.82 Long term (current) use of aspirin; Z79.899 Other long term (current) drug therapy; Z88.5 Allergy status to narcotic agent; Z88.6 Allergy status to analgesic agent

== ENCOUNTER 2021-09-07 16:32 | Emergency (ER) | payer OTHER ==
[~2021-09-07] VITALS: Ht 185.4 cm; Wt 110.5 kg
[~2021-09-07 16:32] MED LIST changes: -AMLO10TA5 PO; +AMLO1TAB25 PO; -LISI40TA PO; +LISI40TA4 PO; -NS 1,000 ML IV ONE; +PANT40TA29 PO; -PANT40TA3 PO; -VITA-122 PO; +VITA-168 PO
--- OUTSIDE RECORDS SUMMARY | 2021-09-07 16:38 | CCD ---
Author Author [facility] [employer] Organization [facility] [employer] Address Unknown Phone Unavailable Care Team Providers Care Central Supply Technician Supervisor Name Role Phone KathySeth noriega Unavailable PROBLEMS ALLERGIES ENCOUNTERS from 1960 to 2021-06-08 IMMUNIZATIONS SOCIAL HISTORY REASON FOR REFERRAL No Information VITAL SIGNS MEDICATIONS PROCEDURES No Information RESULTS No Results REASON FOR VISIT MEDICAL (GENERAL) HISTORY Goals Section Health Concerns MEDICAL EQUIPMENT No Information MENTAL STATUS FUNCTIONAL STATUS ASSESSMENTS No Information PLAN OF TREATMENT Insurance Providers
--- OUTSIDE RECORDS SUMMARY | 2021-09-07 16:38 | CCD ---
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 Stop Ultravate ointment. 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 Active conf irmed 59773205 Problem Allergic rhinitis, unspecified allergic rhinitis type J30.9 Active confirmed 19620533 Problem Retinitis pigmentosa H35.52 Active confirmed 71693467 Problem Melanocytic nevi of face D22.30 Active confirmed 167405299 Problem Obesity E66.9 Active confirmed 164263708 Problem Dermatofibroma of left lower leg D23.72 Active confirmed 165009832 Problem Obstructive sleep apnea G47.33 Active confirmed 29282805 Problem Chronic migraine without aura G43.709 Active co nfirmed 861453346354946 Problem Asthma J45.909 Active confirmed 710731612 Problem Benign prostatic hyperplasia with lower urinary tract symptoms N40.1 Active confirmed 355176927 Problem Multiple lipomas D17.9 Active confirmed 934 62930 lesion on right forearm is mobile, soft, mildly tender, feels like a lipoma Problem Gastroesophageal reflux disease, esophagitis pre sence not specified K21.9 Active confirmed 333042740 Problem Hyperlipidemia, unspecified hyperlipidemia type E7 8.5 Active confirmed 11478165 Problem Testicular cyst N44.2 Active confirmed 2853 48586 Problem Kidney stone N20.0 Active confirmed 3701913 7 Problem Mcgovern angioma D18.01 Active confirmed 95698 01 Problem Hypertensive chronic kidney disease with stage 1 through stage 4 chronic kidney disease, or unspecified chronic kidney disease I12.9 Active confirmed 390215659995211 Problem Simple renal cyst N28.1 Active confirmed 77 810174 Problem Melanocytic nevi of trunk D22.5 Active confirmed 965646065 Problem Actinic keratoses L57.0 Active confirmed 40 4666024 Problem Carpal tunnel syndrome of left wrist G56.02 Act ansley confirmed 527375669026577 Problem Other chronic pain G89.29 Active confirmed 8 0337514 Problem Atypical nevus of back D22.5 Active confirmed 61821066 multiple nevi somewhat asymmetric, one on left upper back atypical looking, dermatoscopically looks benign but clinically looks worrisome, recommend bx. Problem Seasonal allergic rhinitis, unspecified trigger J3 0.2 Active confirmed 768953017 Problem Sebaceous cyst L72.3 Active confirmed 08984 3000 cyst longstanding ,probable sebaceous cyst Problem History of cystic acne Z87.2 Active confirmed 820311349 multple scars Problem Hyperbilirubinemia E80.6 Active confirmed 1 8256492 Problem Lentigines L81.4 Active confirmed 511200216 Problem Acne vulgaris L70.0 Active confirmed 512931 00 Problem Allergic rhinitis, unspecified seasonality, unspecifie d trigger J30.9 Active confirmed 55698213 ALLERGIES Allergen (clinical drug ingredient) Drug/Non Drug Allergy do cumented on EMR Reaction Allergy Type Onset Date Status Vicodin numbness, tingling Drug Allergy Acti ve acetaminophen / oxycodone Percocet(ND Code:[address]-39) confu sallie Drug Allergy Active Smoke smoke trouble breathing Non Drug Allergy A ctive Darvocet-N 100 Confusion, irritable Drug Allergy Active gabapentin Gabapentin(ND Code:[address]-20) Confusion Drug Allergy Active Flexeril Confusion Drug Allergy Active ENCOUNTERS from 1961 to 2021-08-08 Encounter Location Date Provider Diagnosis [address] [phone] [place] [address] Jul, Seth Chavez IMMUNIZATIONS Vaccine Route Administration Date Status Pneumococcal Adult 0.5mL Pneumovax 23 IM Intramuscular February 19, 2014 Administered TDAP Unknown April 11, 2011 Administered TD Adult 0.5mL Tetanus Unknown April 21, 2011 Pending Influenza 6mo & up Fluzone Unknown Sep 26, 2017 Admin istered Influenza 6mo & up Fluzone Unknown Aug 23, 2016 Other s Hepatitis B Adult 1.0mL Engerix-B IM Intramuscular March 13, 2018 Administered SOCIAL HISTORY Tobacco Use: Social History Observation Description Date Details (start date - stop date) Never Smoker Sex Assigned At : Social History Observation Description Sex Assigned At Unknown Audit Question Answer Notes Total Score: 0 Interpretation: Alcohol Education Language: Question Answer Notes Languages spoken: Macedonian Buddhist: Question Answer Notes Buddhist 08 Jewish No voodoo beliefs that would impact health care. Sexual Hx: Question Answer Notes Had sex in the last 12 months (vaginal, oral, or anal)? Yes Have you ever had an STD? No with Women only Drug and Alcohol Question Answer Notes Total Score: 0 Interpretation: No problems reported Alcohol Screening: Question Answer Notes Did you have a drink containing alcohol in the past year? No Points 0 Interpretation Negative BMI Care Goal Follow-Up Question Answer Notes Above Normal BMI Follow-Up Dietary management educatio n, guidance, and counseling Tobacco Use: Question Answer Notes Are you a: never smoker never smoker REASON FOR REFERRAL No Information VITAL SIGNS No information MEDICATIONS Medication SIG (Take, Route, Frequency, Duration) Notes Start Da te End Date Status Carvedilol 12.5 MG TAKE ONE TABLET BY MOUTH @8A M and TAKE ONE TABLET BY MOUTH @5PM for 28 Active Tamsulosin HCl 0.4 MG TAKE ONE CAPSULE BY MOUTH @8AM for 28 Active Calcitriol 0.25 MCG 1 cap orally 3 times weekly for 28 Active Sucralfate 1 GM TAKE ONE TABLET BY MOUTH @8A M and TAKE ONE TABLET @12PM and TAKE ONE TABLET @5PM and TAKE ONE TABLET @8PM for 28 Active Benzoyl Peroxide Wash 5 % use to wash face jawline and neck rash once daily prior to applying clindagel Externally Once a day every AM as wash for 30 days Active Flonase 50 MCG/ACT 1 spray in each nostril Nasally Once a day for 31 Active Nystatin 527937 UNIT/GM 1 application to affected ar ea Externally Daily to face, neck, jawline rash in evening after wash for 30 days Jul, 9 Active Spironolactone 25 MG TAKE ONE TABLET BY MOUTH @8AM for 28 Active Fluticasone Propionate 50 MCG/ACT INSTILL ONE SPRAY IN EACH NOSTRIL ONCE DAILY for 31 Active Amlodipine Besylate 5 MG TAKE ONE TABLET BY MOUTH @8AM for 28 Active Senna 8.6 MG 1 tablet orally Once a day for 28 Active Imitrex 50 MG 1 tab(s) Orally as needed for 30 day(s) PRN Active Lisinopril 40 MG 1 tab orally Daily for 28 Active Atorvastatin Calcium 80 MG TAKE ONE TABLET BY MOUTH @8PM for 28 Active Five Below Blood Glucose w/Device as directed once a day for 30 days Dec, Active Albuterol Sulfate HFA 108 (90 Base) MCG/ACT 2 puffs In halation four times daily as needed for 25 Active Loratadine 10 MG TAKE ONE TABLET BY MOUTH @5PM for 28 Active BenzaClin 1-5 % 1 application to affected ar ea Externally Once a day in the am to the face for 30 days Jul, Active Ciclopirox 0.77 % 1 application to affected ar ea Externally QPM to face and neck for 30 days Aug, Active Vitamin D 1000 UNIT 1 capsule Orally Once a day Active Benzac AC Wash 5 % 1 application to affected ar ea Externally Once a day as a wash to face prior to applying Clindagel to face, jawline, neck rash for 30 days Jul, Active Five Below Glucose Monitor - as directed _ [id number] 6 Daily DX: E11.9 and H35.52 for 99 months Apr, Active Blood Glucose Test embrace test strips 1 strip Dx: E11 .9 ( [id number]) Once a day for 90 day(s) dx: E11.9 AND H35.52 Active Orthopedic Shoes 2 pairs May, Active Clindagel 1 % 1 application to affected ar ea Externally Once a day to face, jawline, neck rash after benzoyl peroxide wash in the AM for 30 days Jul, Active Aspirin Low Dose 81 MG TAKE ONE TABLET BY MOUTH @8AM for 28 Active Colace 100 MG 1 capsule as needed Orally twice daily for 28 Active Aspirin EC Low Dose 81 MG TAKE ONE TABLET BY MOUTH ONC E DAILY orally once daily for 30 day(s) Aug, Active Magnesium Oxide 400 MG TAKE ONE TABLET BY MOUTH @8A M and TAKE ONE TABLET @5PM and TAKE ONE TABLET @8PM for 28 days Active Mag-Oxide 400 MG 1 tab Orally three times per day for 30 days Active Lancets lancets for one touch device 1 lancet subcutan eously daily/DX:E11.90 for 30 days Active Alcohol Prep 70 % USE DIRECTED 1 PAD ONCE DAILY Active PRICE Tennis Elbow Brace - as directed: s46.911d topically Daily f or 30 day(s) Active Pantoprazole Sodium 40 MG TAKE ONE TABLET BY MOUTH @8AM for 28 Active metFORMIN HCl 500 MG TAKE ONE TABLET BY MOUTH @8A M and TAKE ONE TABLET @5PM for 28 Active PROCEDURES No Information RESULTS No Results REASON FOR VISIT refills MEDICAL (GENERAL) HISTORY Type Description Date Medical History DORIE tx with CPAP - [facility] Medical History Diabetes Mellitus with nephropathy, goal HbA1c is < 7.0 Medical History CKD III - [facility] Medical History Hypertension, goal BP is < 130/80 per AH A/ACC guidelines Medical History Mixed hyperlipidemia with lo w HDL, ASCVD risk 4.6% 07/2019 while taking high dose STATIN Medical History Asthma, mild intermittent Medical History Legal blindness from retinitis pigmentos a Medical History Migraine headaches Medical History Chen's esophagus Medical History Chronic Hypokalemia/Hypomagnesemia - man aged as per Nephro Medical History Vocal cord paralysis (likely idiopathic) - [place]- F/U CT 11/25- to F/U with Dr Trejo Medical History splenomegaly, prob due to ac [place] mononucleosis 07/25- U/S 08/30/14-splenomegaly, no lesions. Medical History ? Portal hypertension-- CT 07/25 Surgical History tonsillectomy (? and adenoidectomy) 8-9 yo Surgical History nasal septoplasty 1999 Surgical History EGD/[place] reflux esophagitis/diverticulos is/polyps ([facility]) 07/23 Surgical History EGD/[place]- [facility]- HH/mild ly severe reflux esophagitis- adenomatous polyp/metaplasia/esophagitis 11/29/14 Hospitalization History spinal meningitis 11 yo Hospitalization History GI bleeding ([facility]) 02/2016 Goals Section No Information Health Concerns No Information MEDICAL EQUIPMENT No Information MENTAL STATUS No Information FUNCTIONAL STATUS No Information ASSESSMENTS No Information PLAN OF TREATMENT Medication Medication Name Sig Start Date Stop Date Pantoprazole Sodium 40 MG TAKE ONE TABLET BY MOUTH @8AM for 28 metFORMIN HCl 500 MG TAKE ONE TABLET BY MOUTH @8A M and TAKE ONE TABLET @5PM for 28 Sucralfate 1 GM TAKE ONE TABLET BY MOUTH @8A M and TAKE ONE TABLET @12PM and TAKE ONE TABLET @5PM and TAKE ONE TABLET @8PM for 28 Lisinopril 40 MG 1 tab orally Daily for 28 Magnesium Oxide 400 MG TAKE ONE TABLET BY MOUTH @8A M and TAKE ONE TABLET @5PM and TAKE ONE TABLET @8PM for 28 days Loratadine 10 MG TAKE ONE TABLET BY MOUTH @5PM for 28 Spironolactone 25 MG TAKE ONE TABLET BY MOUTH @8AM for 28 Tamsulosin HCl 0.4 MG TAKE ONE CAPSULE BY MOUTH @8AM for 28 Amlodipine Besylate 5 MG TAKE ONE TABLET BY MOUTH @8AM for 28 Carvedilol 12.5 MG TAKE ONE TABLET BY MOUTH @8A M and TAKE ONE TABLET BY MOUTH @5PM for 28 Aspirin Low Dose 81 MG TAKE ONE TABLET BY MOUTH @8AM for 28 Atorvastatin Calcium 80 MG TAKE ONE TABLET BY MOUTH @8PM for 28 Insurance Providers Payer Name Payer Address Payer Phone Insured Name Patient Relati onship to Insured Coverage Start Date Coverage End Date [facility] [address] [facility] [phone] [employer]MINE OKEE[employer] self
--- OUTSIDE RECORDS SUMMARY | 2021-09-07 16:38 | CCD ---
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 Stop Ultravate ointment. 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 Active conf irmed 91657356 Problem Allergic rhinitis, unspecified allergic rhinitis type J30.9 Active confirmed 47598604 Problem Retinitis pigmentosa H35.52 Active confirmed 87523424 Problem Melanocytic nevi of face D22.30 Active confirmed 854574373 Problem Obesity E66.9 Active confirmed 245507876 Problem Dermatofibroma of left lower leg D23.72 Active confirmed 973474768 Problem Obstructive sleep apnea G47.33 Active confirmed 36621823 Problem Chronic migraine without aura G43.709 Active co nfirmed 999131708278894 Problem Asthma J45.909 Active confirmed 799716223 Problem Benign prostatic hyperplasia with lower urinary tract symptoms N40.1 Active confirmed 504901462 Problem Multiple lipomas D17.9 Active confirmed 938 91423 lesion on right forearm is mobile, soft, mildly tender, feels like a lipoma Problem Gastroesophageal reflux disease, esophagitis pre sence not specified K21.9 Active confirmed 372178928 Problem Hyperlipidemia, unspecified hyperlipidemia type E7 8.5 Active confirmed 68508372 Problem Testicular cyst N44.2 Active confirmed 2853 02782 Problem Kidney stone N20.0 Active confirmed 5167789 7 Problem Mcgovern angioma D18.01 Active confirmed 64383 01 Problem Hypertensive chronic kidney disease with stage 1 through stage 4 chronic kidney disease, or unspecified chronic kidney disease I12.9 Active confirmed 950722471857055 Problem Simple renal cyst N28.1 Active confirmed 77 198081 Problem Melanocytic nevi of trunk D22.5 Active confirmed 990819823 Problem Actinic keratoses L57.0 Active confirmed 40 5905071 Problem Carpal tunnel syndrome of left wrist G56.02 Act ansley confirmed 030684452197867 Problem Other chronic pain G89.29 Active confirmed 8 3058202 Problem Atypical nevus of back D22.5 Active confirmed 70156701 multiple nevi somewhat asymmetric, one on left upper back atypical looking, dermatoscopically looks benign but clinically looks worrisome, recommend bx. Problem Seasonal allergic rhinitis, unspecified trigger J3 0.2 Active confirmed 226830164 Problem Sebaceous cyst L72.3 Active confirmed 64163 3000 cyst longstanding ,probable sebaceous cyst Problem History of cystic acne Z87.2 Active confirmed 984629344 multple scars Problem Hyperbilirubinemia E80.6 Active confirmed 1 0737151 Problem Lentigines L81.4 Active confirmed 528732760 Problem Acne vulgaris L70.0 Active confirmed 764748 00 Problem Allergic rhinitis, unspecified seasonality, unspecifie d trigger J30.9 Active confirmed 09059134 ALLERGIES Allergen (clinical drug ingredient) Drug/Non Drug Allergy do cumented on EMR Reaction Allergy Type Onset Date Status Vicodin numbness, tingling Drug Allergy Acti ve acetaminophen / oxycodone Percocet(NDC Code:[address]-46) confu sallie Drug Allergy Active Smoke smoke trouble breathing Non Drug Allergy A ctive Darvocet-N 100 Confusion, irritable Drug Allergy Active gabapentin Gabapentin(NDC Code:[address]-91) Confusion Drug Allergy Active Flexeril Confusion Drug Allergy Active ENCOUNTERS from 1961 to 2021-06-15 Encounter Location Date Provider Diagnosis [facility] Resident [address] [phone] [place] [address] Jun, Zia Patel Hip pain M25.559 and Somatic dysfunction of both lower extremities M99.06 IMMUNIZATIONS Vaccine Route Administration Date Status Pneumococcal [...] Education Language: Question Answer Notes Languages spoken: Kosovan Mormonism: Question Answer Notes Mormonism 08 Faith No sabianist beliefs that would impact health care. Sexual [...] REASON FOR REFERRAL No Information VITAL SIGNS Weight 238.4 lbs Jun, Weight-kg 108.14 kg Jun, Height 73 in Jun, BMI 31.45 kg/m2 Jun, Heart Rate 98 /min Jun, Respiratory Rate 18 /min Jun, Temperature 98.0 degrees Fahrenheit Jun, Oximetry 99 Jun, Blood pressure systolic 120 mm Hg Jun, Blood pressure diastolic 80 mm Hg Jun, MEDICATIONS Medication SIG (Take, Route, Frequency, Duration) Notes Start Da te End Date Status metFORMIN HCl 500 MG 1 tab orally twice daily with meals for 28 Active Fluticasone Propionate 50 MCG/ACT INSTILL ONE SPRAY IN EACH NOSTRIL ONCE DAILY for 31 Active PRICE Tennis Elbow Brace - as directed: s46.911d topically Daily f or 30 day(s) Active Benzac AC Wash 5 % 1 application to affected ar ea Externally Once a day as a wash to face prior to applying Clindagel to face, jawline, neck rash for 30 days Jul, Active Senna 8.6 MG 1 tablet orally Once a day for 28 Active Light Chaser Animation Voice Glucose Monitor - as directed _ 96831125 6 Daily DX: E11.9 and H35.52 for 99 months Apr, Active Lisinopril 40 MG 1 tab orally Daily for 28 Active Flonase 50 MCG/ACT 1 spray in each nostril Nasally Once a day for 31 Active Nystatin 929147 UNIT/GM 1 application to affected ar ea Externally Daily to face, neck, jawline rash in evening after wash for 30 days Jul, 9 Active Amlodipine Besylate 5 MG 1 tab Orally Daily for 28 Active Aspirin 81 MG TAKE ONE TABLET BY MOUTH @8AM for 28 Active Alcohol Prep 70 % USE DIRECTED 1 PAD ONCE DAILY Active Imitrex 50 MG 1 tab(s) Orally as needed for 30 day(s) PRN Active Atorvastatin Calcium 80 MG TAKE ONE TABLET BY MOUTH AT BEDTIME orally once daily for 28 Active Albuterol Sulfate HFA 108 (90 Base) MCG/ACT 2 puffs In halation four times daily as needed for 25 Active Benzoyl Peroxide Wash 5 % use to wash face jawline and neck rash once daily prior to applying clindagel Externally Once a day every AM as wash for 30 days Active Vitamin D 1000 UNIT 1 capsule Orally Once a day Active Clindagel 1 % 1 application to affected ar ea Externally Once a day to face, jawline, neck rash after benzoyl peroxide wash in the AM for 30 days Jul, Active Protonix 40 MG TAKE ONE orally once daily for 28 Active Flomax 0.4 MG 1 capsule Orally Once a day for 28 Active Ciclopirox 0.77 % 1 application to affected ar ea Externally QPM to face and neck for 30 days Aug, Active Calcitriol 0.25 MCG 1 cap orally 3 times weekly for 28 Active Loratadine 10 MG 1 tab orally Daily for 28 Active Coreg 12.5 mg 1 tab(s) oral twice daily for 28 Active Colace 100 MG 1 capsule as needed Orally twice daily for 28 Active ProdChoggery Voice Blood Glucose w/Device as directed once a day for 30 days Dec, Active Lancets lancets for one touch device 1 lancet subcutan eously daily/DX:E11.90 for 30 days Active Aspirin EC Low Dose 81 MG TAKE ONE TABLET BY MOUTH ONC E DAILY orally once daily for 30 day(s) Aug, Active Magnesium Oxide 400 MG TAKE ONE TABLET BY MOUTH @8A M and TAKE ONE TABLET @5PM and TAKE ONE TABLET @8PM orally once daily for 28 Active Orthopedic Shoes 2 pairs May, Active Blood Glucose Test embrace test strips 1 strip Dx: E11 .9 ( [id number]) Once a day for 90 day(s) dx: E11.9 AND H35.52 Active BenzaClin 1-5 % 1 application to affected ar ea Externally Once a day in the am to the face for 30 days Jul, Active Aldactone 25 MG 1 tab Orally Daily for 28 Active Carafate 1 GM 1 tablet on an empty stomach Orally before meals and at bedtime for 28 Active Mag-Oxide 400 MG 1 tab Orally three times per day for 30 days Active PROCEDURES No Information RESULTS No Results REASON FOR VISIT Left hip pain MEDICAL (GENERAL) HISTORY Type Description Date Medical History DORIE tx with CPAP - [facility] Medical History Diabetes Mellitus with nephropathy, goal HbA1c is < 7.0 Medical History CKD III - [facility] Medical History Hypertension, goal BP is < [...] Medical History splenomegaly, prob due to ac [place] mononucleosis 07/25- U/S 08/30/14-splenomegaly, no lesions. Medical History ? Portal hypertension-- CT 07/25 Surgical History tonsillectomy (? and adenoidectomy) 8-9 yo Surgical History nasal septoplasty 1999 Surgical History EGD/[place] reflux esophagitis/diverticulos is/polyps ([facility]) 07/23 Surgical History EGD/[place]- [facility]ie- HH/mild ly severe reflux esophagitis- adenomatous polyp/metaplasia/esophagitis 11/29/14 Hospitalization History spinal meningitis 11 yo Hospitalization History GI bleeding ([facility]) 02/2016 Goals Section No Information Health Concerns No Information MEDICAL EQUIPMENT No Information MENTAL STATUS No Information FUNCTIONAL STATUS No Information ASSESSMENTS Encounter Date Diagnosis Assessment Notes Treatment Notes Treatm ent Clinical Notes Jun, Hip pain (ICD-10 - M25.559) Counterstrain technique done at greater trochanter site of left lower extremity. Counterstrain technique done at left suprapatellar site. Manipulative Tory technique done for left hip. Patient reported that his symptoms resolved and the intensity of pain went down to 0 from 6-7 out of 10. Jun, Somatic dysfunction of both lower extremities (I CD-10 - M99.06) PLAN OF TREATMENT Treatment Notes Assessment Notes Clinical Notes Hip pain Counterstrain techni que done at greater trochanter site of left lower extremity. Counterstrain technique done at left suprapatellar site. Manipulative Tory technique done for left hip. Patient reported that his symptoms resolved and the intensity of pain went down to 0 from 6-7 out of 10. Next Appt Details prn Reason:Somatic dysfunction Provider Name:Clifton Rayo, 2021-07-12 01:30:00 PM, [address], , [place], [address], Follow Up:prnSomatic dysfunction Insurance Providers Payer Name Payer Address Payer Phone Insured Name Patient Relati onship to Insured Coverage Start Date Coverage End Date [facility] [address] [facility] [phone] [employer]MINE OKEEFE self
--- OUTSIDE RECORDS SUMMARY | 2021-09-07 16:38 | CCD ---
Author Author [facility] Organization [facility] Address Unknown Phone Unavailable Care Team Providers Care [facility] [place] Name Role Phone Zia Patel Unavailable PROBLEMS Type Condition ICD9-CM Code [id number] Code Onset Dates Condition S tatus W/U Status Risk SNOMED Code Notes Problem DM renal manif type II E11.29 Active confirmed 92943673 Problem Chronic kidney disease, stage III (moderate) N18.3 Active confirmed 421904337 Problem Contact dermatitis and other eczema due to other chemical products L25.3 Active confirmed [id number] much better , almost resolved . Stop Ultravate ointment. 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 Active conf irmed 17638557 Problem Allergic rhinitis, unspecified allergic rhinitis type J30.9 Active confirmed 56074953 Problem Retinitis pigmentosa H35.52 Active confirmed 32408251 Problem Melanocytic nevi of face D22.30 Active confirmed 203148236 Problem Obesity E66.9 Active confirmed 806676029 Problem Dermatofibroma of left lower leg D23.72 Active confirmed 029518818 Problem Obstructive sleep apnea G47.33 Active confirmed 16629571 Problem Chronic migraine without aura G43.709 Active co nfirmed 673279328723363 Problem Asthma J45.909 Active confirmed 127461170 Problem Benign prostatic hyperplasia with lower urinary tract symptoms N40.1 Active confirmed 173173386 Problem Multiple lipomas D17.9 Active confirmed 934 28380 lesion on right forearm is mobile, soft, mildly tender, feels like a lipoma Problem Gastroesophageal reflux disease, esophagitis pre sence not specified K21.9 Active confirmed 877908366 Problem Hyperlipidemia, unspecified hyperlipidemia type E7 8.5 Active confirmed 67630141 Problem Testicular cyst N44.2 Active confirmed 2853 60179 Problem Kidney stone N20.0 Active confirmed 0312232 7 Problem Mcgovern angioma D18.01 Active confirmed 98827 01 Problem Hypertensive chronic kidney disease with stage 1 through stage 4 chronic kidney disease, or unspecified chronic kidney disease I12.9 Active confirmed 140334533716773 Problem Simple renal cyst N28.1 Active confirmed 77 984424 Problem Melanocytic nevi of trunk D22.5 Active confirmed 595507454 Problem Actinic keratoses L57.0 Active confirmed 40 3720316 Problem Carpal tunnel syndrome of left wrist G56.02 Act ansley confirmed 803372204692203 Problem Other chronic pain G89.29 Active confirmed 8 0771798 Problem Atypical nevus of back D22.5 Active confirmed 78402358 multiple nevi somewhat asymmetric, one on left upper back atypical looking, dermatoscopically looks benign but clinically looks worrisome, recommend bx. Problem Seasonal allergic rhinitis, unspecified trigger J3 0.2 Active confirmed 162497246 Problem Sebaceous cyst L72.3 Active confirmed 79199 3000 cyst longstanding ,probable sebaceous cyst Problem History of cystic acne Z87.2 Active confirmed 320169929 multple scars Problem Hyperbilirubinemia E80.6 Active confirmed 1 9043261 Problem Lentigines L81.4 Active confirmed 554034220 Problem Acne vulgaris L70.0 Active confirmed 030187 00 Problem Allergic rhinitis, unspecified seasonality, unspecifie d trigger J30.9 Active confirmed 39309088 ALLERGIES Allergen (clinical drug ingredient) Drug/Non Drug Allergy do cumented on EMR Reaction Allergy Type Onset Date Status Vicodin numbness, tingling Drug Allergy Acti ve acetaminophen / oxycodone Percocet(NDC Code:[address]-04) confu sallie Drug Allergy Active Smoke smoke trouble breathing Non Drug Allergy A ctive Darvocet-N 100 Confusion, irritable Drug Allergy Active gabapentin Gabapentin(NDC Code:[address]-44) Confusion Drug Allergy Active Flexeril Confusion Drug Allergy Active ENCOUNTERS from 1961 to 2021-07-11 Encounter Location Date Provider Diagnosis [address] [phone] [place] [address] Jun, Ziaemmanuelle Connellyhawa IMMUNIZATIONS Vaccine Route Administration Date Status Pneumococcal [...] Education Language: Question Answer Notes Languages spoken: Turkish Hinduism: Question Answer Notes Hinduism 08 Anabaptism No lutheran beliefs that would impact health care. Sexual [...] Notes Start Da te End Date Status Calcitriol 0.25 MCG 1 cap orally 3 times weekly for 28 Active Lancets lancets for one touch device 1 lancet subcutan eously daily/DX:E11.90 for 30 days Active Loratadine 10 MG TAKE ONE TABLET BY MOUTH @5PM for 28 Active Colace 100 MG 1 capsule as needed Orally twice daily for 28 Active Vitamin D 1000 UNIT 1 capsule Orally Once a day Active Tamsulosin HCl 0.4 MG TAKE ONE CAPSULE BY MOUTH @8AM for 28 Active Senna 8.6 MG 1 tablet orally Once a day for 28 Active Aspirin Low Dose 81 MG TAKE ONE TABLET BY MOUTH @8AM for 28 Active Nystatin 654082 UNIT/GM 1 application to affected ar ea Externally Daily to face, neck, jawline rash in evening after wash for 30 days 06 Jul, 201 9 Active [employer] Voice Blood Glucose w/Device as directed once a day for 30 days Dec, Active [employer] Voice Glucose Monitor - as directed _ [id number] 6 Daily DX: E11.9 and H35.52 for 99 months Apr, Active Lisinopril 40 MG 1 tab orally Daily for 28 Active Alcohol Prep 70 % USE DIRECTED 1 PAD ONCE DAILY Active Fluticasone Propionate 50 MCG/ACT INSTILL ONE SPRAY IN EACH NOSTRIL ONCE DAILY for 31 Active PRICE Tennis Elbow Brace - as directed: s46.911d topically Daily f or 30 day(s) Active Benzoyl Peroxide Wash 5 % use to wash face jawline and neck rash once daily prior to applying clindagel Externally Once a day every AM as wash for 30 days Active Spironolactone 25 MG TAKE ONE TABLET BY MOUTH @8AM for 28 Active metFORMIN HCl 500 MG TAKE ONE TABLET BY MOUTH @8A M and TAKE ONE TABLET @5PM for 28 Active Pantoprazole Sodium 40 MG TAKE ONE TABLET BY MOUTH @8AM for 28 Active Clindagel 1 % 1 application to affected ar ea Externally Once a day to face, jawline, neck rash after benzoyl peroxide wash in the AM for 30 days Jul, Active Carvedilol 12.5 MG TAKE ONE TABLET BY MOUTH @8A M and TAKE ONE TABLET BY MOUTH @5PM for 28 Active Albuterol Sulfate HFA 108 (90 Base) MCG/ACT 2 puffs In halation four times daily as needed for 25 Active Benzac AC Wash 5 % 1 application to affected ar ea Externally Once a day as a wash to face prior to applying Clindagel to face, jawline, neck rash for 30 days Jul, Active Magnesium Oxide 400 MG TAKE ONE TABLET BY MOUTH @8A M and TAKE ONE TABLET @5PM and TAKE ONE TABLET @8PM for 28 Active Flonase 50 MCG/ACT 1 spray in each nostril Nasally Once a day for 31 Active Imitrex 50 MG 1 tab(s) Orally as needed for 30 day(s) PRN Active Amlodipine Besylate 5 MG TAKE ONE TABLET BY MOUTH @8AM for 28 Active Ciclopirox 0.77 % 1 application to affected ar ea Externally QPM to face and neck for 30 days Aug, Active Sucralfate 1 GM TAKE ONE TABLET BY MOUTH @8A M and TAKE ONE TABLET @12PM and TAKE ONE TABLET @5PM and TAKE ONE TABLET @8PM for 28 Active Atorvastatin Calcium 80 MG TAKE ONE TABLET BY MOUTH @8PM for 28 Active Orthopedic Shoes 2 pairs May, Active Blood Glucose Test embrace test strips 1 strip Dx: E11 .9 ( [id number]) Once a day for 90 day(s) dx: E11.9 AND H35.52 Active Aspirin EC Low Dose 81 MG TAKE ONE TABLET BY MOUTH ONC E DAILY orally once daily for 30 day(s) Aug, Active BenzaClin 1-5 % 1 application to affected ar ea Externally Once a day in the am to the face for 30 days Jul, Active Mag-Oxide 400 MG 1 tab Orally three times per day for 30 days Active PROCEDURES No Information RESULTS No Results REASON FOR VISIT refills MEDICAL (GENERAL) HISTORY Type Description Date Medical History DORIE tx with CPAP - [facility] Medical History Diabetes Mellitus with nephropathy, goal HbA1c is < 7.0 Medical History CKD III - [facility] Medical History Hypertension, goal BP is < [...] Medical History splenomegaly, prob due to ac king salmon mononucleosis 07/25- U/S 08/30/14-splenomegaly, no lesions. Medical History ? Portal hypertension-- CT 07/25 Surgical History tonsillectomy (? 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 Hospitalization History GI bleeding ([facility]) 02/2016 Goals Section No Information Health Concerns No Information MEDICAL EQUIPMENT No Information MENTAL STATUS No Information FUNCTIONAL STATUS No Information ASSESSMENTS No Information PLAN OF TREATMENT Medication Medication Name Sig Start Date Stop Date Pantoprazole Sodium 40 MG TAKE ONE TABLET BY MOUTH @8AM for 28 Atorvastatin Calcium 80 MG TAKE ONE TABLET BY MOUTH @8PM for 28 Magnesium Oxide 400 MG TAKE ONE TABLET BY MOUTH @8A M and TAKE ONE TABLET @5PM and TAKE ONE TABLET @8PM for 28 Loratadine 10 MG TAKE ONE TABLET BY MOUTH @5PM for 28 metFORMIN HCl 500 MG TAKE ONE TABLET BY MOUTH @8A M and TAKE ONE TABLET @5PM for 28 Lisinopril 40 MG 1 tab orally Daily for 28 Tamsulosin HCl 0.4 MG TAKE ONE CAPSULE BY MOUTH @8AM for 28 Amlodipine Besylate 5 MG TAKE ONE TABLET BY MOUTH @8AM for 28 Sucralfate 1 GM TAKE ONE TABLET BY MOUTH @8A M and TAKE ONE TABLET @12PM and TAKE ONE TABLET @5PM and TAKE ONE TABLET @8PM for 28 Carvedilol 12.5 MG TAKE ONE TABLET BY MOUTH @8A M and TAKE ONE TABLET BY MOUTH @5PM for 28 Spironolactone 25 MG TAKE ONE TABLET BY MOUTH @8AM for 28 Aspirin Low Dose 81 MG TAKE ONE TABLET BY MOUTH @8AM for 28 Next Appt Details Provider Name:Ziamorro Patel, 2020-0 07-12 01:30:00 PM, [address] [facility], , [place], [address], Insurance Providers Payer Name Payer Address Payer Phone Insured Name Patient Relati onship to Insured Coverage Start Date Coverage End Date [facility] [employer] [facility] [address] [facility] [phone] [id number] self
--- OUTSIDE RECORDS SUMMARY | 2021-09-07 16:38 | CCD ---
Author Author [facility] Organization [facility] Address Unknown Phone Unavailable Care Team Providers Care Prototype Deicer Assembler Name Role Phone RADHA LUBIN MD Unavailable Unavailable RADHA LUBIN MD Unavailable Unavailable RADHA LUBIN MD Unavailable Unavailable RADHA LUBIN MD Unavailable Unavailable RADHA LUBIN MD Unavailable Unavailable RADHA LUBIN MD Unavailable Unavailable RADHA LUBIN MD Unavailable Unavailable RADHA LUBIN MD Unavailable Unavailable RADHA LUBIN MD Unavailable Unavailable RADHA LUBIN MD Unavailable Unavailable RADHA LUBIN MD Unavailable Unavailable RADHA LUBIN MD Unavailable Unavailable RADHA LUBIN MD Unavailable Unavailable RADHA LUBIN MD Unavailable Unavailable RADHA LUBIN MD Unavailable Unavailable RADHA LUBIN MD Unavailable Unavailable RADHA LUBIN MD Unavailable Unavailable TRISTIANRADHA MD Unavailable Unavailable TRISTIANRADHA MD Unavailable Unavailable TRISTIAN, RADHA SMITH Unavailable Unavailable TRISTIAN, RADHA SMITH Unavailable Unavailable TRISTIAN, RADHA SMITH Unavailable Unavailable TRISTIAN, RADHA SMITH Unavailable Unavailable TRISTIAN, RADHA SMITH Unavailable Unavailable TRISTIAN, RADHA SMITH Unavailable Unavailable TRISTIAN, RADHA SMITH Unavailable Unavailable TRISTIAN, RADHA SMITH Unavailable Unavailable TRISTIAN, RADHA SMITH Unavailable Unavailable TRISTIAN, RADHA SMITH Unavailable Unavailable TRISTIAN, RADHA SMITH Unavailable Unavailable TRISTIAN, RADHA SIMTH Unavailable Unavailable TRISTIAN, RADHA SMITH Unavailable Unavailable TRISTIAN, RADHA SMITH Unavailable Unavailable TRISTIAN, RADHA SMITH Unavailable Unavailable TRISTIAN, RADHA SMITH Unavailable Unavailable TRISTIAN, RADHA SMITH Unavailable Unavailable TRISTIAN, RADHA SMITH Unavailable Unavailable TRISTIAN, RADHA SMITH Unavailable Unavailable TRISTIAN, RADHA SMITH Unavailable Unavailable TRISTIAN, RADHA SMITH Unavailable Unavailable TRISTIAN, RADHA SMITH Unavailable Unavailable TRISTIAN, RADHA SMITH Unavailable Unavailable TRISTIAN, RADHA SMITH Unavailable Unavailable TRISTIAN, RADHA SMITH Unavailable Unavailable TRISTIAN, RADHA SMITH Unavailable Unavailable TRISTIAN, RADHA SMITH Unavailable Unavailable TRISTIAN, RADHA SMITH Unavailable Unavailable TRISTIAN, RADHA SMITH Unavailable Unavailable TRISTIAN, RADHA SMITH Unavailable Unavailable TRISTIAN, RADHA SMITH Unavailable Unavailable TRISTIAN, RADHA SMITH Unavailable Unavailable TRISTIAN, RADHA SMITH Unavailable Unavailable TRISTIAN, RADHA SMITH Unavailable Unavailable TRISTIAN, RADHA SMITH Unavailable Unavailable TRISTIAN, RADHA SMITH Unavailable Unavailable Carlos Chavez MD Unavailable Unavailable Carlos Chavez MD Unavailable Unavailable Carlos Chavez MD Unavailable Unavailable Carlos Chavez MD Unavailable Unavailable Carlos Chavez MD Unavailable Unavailable Carlos Chavez MD Unavailable Unavailable Carlos Chavez MD Unavailable Unavailable Carlos Chavez MD Unavailable Unavailable Carlos Chavez MD Unavailable Unavailable Carlos Chavez MD Unavailable Unavailable Carlos Chavez MD Unavailable Unavailable Carlos Chavez MD Unavailable Unavailable Carlos Chavez MD Unavailable Unavailable Carlos Chavez MD Unavailable Unavailable Carlos Chavez MD Unavailable Unavailable Carlos Chavez MD Unavailable Unavailable Carlos Chavez MD Unavailable Unavailable Carlos Chavez MD Unavailable Unavailable Carlos Chavez MD Unavailable Unavailable Carlos Chavez MD Unavailable Unavailable Carlos Chavez MD Unavailable Unavailable Carlos Chavez MD Unavailable Unavailable Carlos Chavez MD Unavailable Unavailable Carlos Chavez MD Unavailable Unavailable Carlos Chavez MD Unavailable Unavailable Carlos Chavez MD Unavailable Unavailable Carlos Chavez MD Unavailable Unavailable Carlos Chavez MD Unavailable Unavailable [place], D Seth MD Unavailable Unavailable Kathy, D Seth MD Unavailable Unavailable [place], D Esth MD Unavailable Unavailable Kathy, D Seth MD Unavailable Unavailable Kathy, D Seth MD Unavailable Unavailable [place], D Seth MD Unavailable Unavailable [place], D Seth MD Unavailable Unavailable Kathy, D Seth MD Unavailable Unavailable [place], D Seth MD Unavailable Unavailable [place], D Seth MD Unavailable Unavailable Kathy, D Seth MD Unavailable Unavailable Kathy, D Seth MD Unavailable Unavailable [place], D Seth MD Unavailable Unavailable Kathy, D Seth MD Unavailable Unavailable Kathy, D Seth MD Unavailable Unavailable [place], D Seth MD Unavailable Unavailable Kathy, D Seth MD Unavailable Unavailable Kathy, D Seth MD Unavailable Unavailable Kathy, D Seth MD Unavailable Unavailable Kathy, D Seth MD Unavailable Unavailable Kathy, D Seth MD Unavailable Unavailable Kathy, D Seth MD Unavailable Unavailable Kathy, D Seth MD Unavailable Unavailable [place], D Seth MD Unavailable Unavailable [place], D Seth MD Unavailable Unavailable [place], D Seth MD Unavailable Unavailable [place], D Seth MD Unavailable Unavailable Re-disclosure Warning The records that you are about to access may contain information from federally-assisted alcohol or drug abuse programs. If such information is present, then the following federally mandated warning applies: This information has been disclosed to you from records protected by federal confidentiality rules (42 CFR part 2). The federal rules prohibit you from making any further disclosure of this information unless further disclosure is expressly permitted by the written consent of the person to whom it pertains or as otherwise permitted by 42 CFR part 2. A general authorization for the release of medical or other information is NOT sufficient for this purpose. The Federal rules restrict any use of the information to criminally investigate or prosecute any alcohol or drug abuse patient.The records that you are about to access may contain highly sensitive health information, the redisclosure of which is protected by Article 27-F of the [facility] Public Health law. If you continue you may have access to information: Regarding HIV / AIDS; Provided by facilities licensed or operated by the [facility] Office of Mental Health; or Provided by the [facility] Office for People With Developmental Disabilities. If such information is present, then the following [facility] mandated warning applies: This information has been disclosed to you from confidential records which are protected by state law. State law prohibits you from making any further disclosure of this information without the specific written consent of the person to whom it pertains, or as otherwise permitted by law. Any unauthorized further disclosure in violation of state law may result in a fine or custodial sentence or both. A general authorization for the release of medical or other information is NOT sufficient authorization for further disc losure. Family History Family Member Name Family Member Gender Family Member Status Date o f Status Description Data Source(s) Unknown Unknown Problem MEDENT ([facility]) Unknown Male Problem MEDENT ([facility] Unknown Male Problem MEDENT ([facility] Unknown Male Problem MEDENT ([facility]) Unknown Female Problem MEDENT ([facility]) Unknown Female Problem MEDENT ([facility]) Unknown Female Problem MEDENT ([facility]) Unknown Female Problem MEDENT ([facility]) Encounters Encounter Providers Location Date Indications Data Source(s ) Unknown [address] [place] [phone] 08/07/2021 12:00:00 AM EDT eCW1 ([facility]) Unknown [address] [place] [phone] 06/30/2021 12:00:00 AM EDT eCW1 ([facility]) Outpatient [address] [place] [address] 06/14/2021 12:00:00 AM EDT eCW1 ([facility]) Unknown [address] [place] [address] 06/08/2021 12:00:00 AM EDT eCW1 ([facility]) Outpatient Attender: RADHA FONGeferrer: Seth Chavez MD [email or web address] 04/21/2021 12:00:00 AM EDT - 04/21/2021 01:51:13 PM EDT [facility] Unknown [address] [place] [address] 04/18/2021 12:00:00 AM EDT eCW1 ([facility]) Outpatient [address] [facility] [address] 04/12/2021 12:00:00 AM EDT [facility]1 [facility] [place] [address] [facility] [address] 02/28/2021 12:00:00 AM EDT eCW1 [facility] [place] [address] [facility] [address] 02/22/2021 12:00:00 AM EDT eCW1 ([facility]) [place] [address] [facility] [address] 01/23/2021 12:00:00 AM EDT eCW1 ([facility]) [place] [address] [facility] [address] 12/30/2020 12:00:00 AM EST eCW1 ([facility]) [place] [address] [facility] [address] 12/28/2020 12:00:00 AM EST eCW1 ([facility]) [place] [address] [facility] [address] 10/27/2020 12:00:00 AM EST eCW1 ([facility]) Outpatient Attender: RADHA ELLSWORTHSJPSherrieALY 0 02:20:08 PM EST - 10/19/2020 03:08:20 PM EST [facility] Outpatient Attender: RADHA LUBIN MDReferrer: RADHA BERGMANSJPSherrieALY 10/19/2020 01:16:50 PM EST - 10/19/2020 03:08:52 PM EST [facility] [place] [address] [facility] [address] 09/14/2020 12:00:00 AM EST eCW1 ([facility]) [facility] Dermatology [address] [place] [address] 07/21/2020 12:00:00 AM EDT eCW1 ([facility]) Immunizations Vaccine Date Status Description Data Source(s) COVID-19 VACCINE Pfizer 02/10/2021 12:00:00 AM EDT completed [facility] Vaccine Series Complete: YESThis Data wa s Submitted to [facility] Via [email or web address]. COVID-19 VACCINE Pfizer 01/20/2021 12:00:00 AM EST completed [facility] Vaccine Series Complete: NOThis Data was Submitted to [facility] Via [email or web address]. Medications No Information Insurance Providers Payer name Policy type / Coverage type Policy ID Covered constitution party ID Covered constitution party's relationship to rai Policy Rai Plan Information MEDICAID [id number] SP [id number] Medicaid [place] Medigap Part B [id number] Self [id number] MEDICAID M [id number] Self [id number] MEDICAID M [id number] Self [id number] UN COMMUNITY PLAN [facility] [id number] SP [id number] [facility] Commercial [id number] Self [id number] [facility] Commercial [id number] Self 1 [id number] [facility] Commercial [id number] Self 1 [id number] UN COMMUNITY PLAN MCDO [id number] SP [id number] [facility] Community Plan Commercial [id number] Self [id number] UN COMMUNITY PLAN MCDO [id number] SP [id number] D Managed Care [facility] P [id number] S [id number] Medicaid Dental S [id number] S [id number] UNHC COMMUNITY PLAN MCDO [id number] SP [id number] [facility] MEDICAID [id number] xxxxxxxxx [id number] 1 [facility] MEDICAID [id number] Amanda [id number] ANSI-Medicaid [id number] ANSI-Medicaid [id number] ANSI-Medicaid [id number] ANSI-Medicaid [id number] ANSI-Medicaid [id number] ANSI-Medicaid [id number] ANSI-Medicaid [id number] ANSI-Medicaid [id number] ANSI-Medicaid [id number] ANSI-Medicaid [id number] ANSI-Medicaid [id number] ANSI-Medicaid [id number] Managed Care - Community Plan [facility] P UNAVAILABLE S UNAVAILABLE ANSI-Medicaid [id number] ANSI-Medicaid [id number] ANSI-Medicaid [id number] [facility] [id number] SP [id number] ANSI-Medicaid [id number] ANSI-Medicaid [id number] ANSI-Medicaid [id number] ANSI-Medicaid [id number] [facility] O [id number] S [id number] ANSI-Medicaid [id number] ANSI-Medicaid [id number] ANSI-Medicaid [id number] ANSI-Medicaid [id number] ANSI-Medicaid [id number] ANSI-Medicaid [id number] ANSI-Medicaid [id number] ANSI-Medicaid [id number] ANSI-Medicaid [id number] ANSI-Medicaid [id number] [facility] Community Plan Commercial [id number] Self 1 [id number] [place] [id number] Self [id number] [employer] Medicaid Medicaid [id number] Self [id number] [facility] O [id number] S [id number] [facility] Medicaid Medicaid [id number] Self MEDICAID [id number] SP [id number] ANSI-Medicaid [id number] [facility] COMMUNITY PLAN [facility] [id number] SP [id number] Managed Care - [facility] Community Plan P UNAVAILABLE S UNAVAILABLE Medicaid S UNAVAILABLE S UNAVAIL[place] BLE [place] Medig[place] Part B [id number] Self [id number] [facility] Health Maintenance Organization (HMO) [id number] Self [id number] ANSI-Medicaid [id number] ANSI-Medicaid [id number] ANSI-Medicaid [id number] ANSI-Medicaid [id number] ANSI-Medicaid [id number] ANSI-Medicaid [id number] ANSI-Medicaid [id number] ANSI-Medicaid [id number] ANSI-Medicaid [id number] ANSI-Medicaid [id number] Problems, Conditions, and Diagnoses Code Display Name Description Problem Type Effective Dates Data Source(s) G47.33 Obstructive sleep apnea (adult) (pediatr ic) Obstructive sleep apnea (adult) (pediatr Diagnosis 04/21/2021 12:56:41 PM EDT [facility] E66.9 Obesity, unspecified Obesity, unspecified Diagnosis 04/21/2021 12:56:41 PM EDT [facility] K21.9 Gastro-esophageal reflux disease without esophagitis Gastro-esophageal reflux disease without Diagnosis 04/21/2021 12:56:[address] 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, both eyes Unqualified v isual loss, both eyes Diagnosis 04/21/2021 12:56:41 PM EDT [facility] I10 Essential (primary) hypertension Essential (primary) h ypertension Diagnosis 04/21/2021 12:56:41 PM EDT [facility] J45.909 Unspecified asthma, uncomplicated Unspecified as thma, uncomplicated Diagnosis 04/21/2021 12:56:41 PM EDT [facility] I77.810 Thoracic aortic ectasia Thoracic aortic ectasia Diagno sis 04/21/2021 12:56:41 PM EDT [facility] E78.5 Hyperlipidemia, unspecified Hyperlipidemia, unspecifie d Diagnosis 04/21/2021 12:56:41 PM EDT [facility] G43.809 Other migraine, not intractable, without status migrainosus Other migraine, not intractable, without Diagnosis 10/19/2020 02:20:08 PM ES T [facility] J30.2 [id number] Seasonal allergic rhinitis, unspecified 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 Problem 01/23/2021 12:00:00 AM EDT eCW1 ([facility]) G89.29 [id number] Other chronic pain Problem 10/27/2020 12:00: 00 AM EST eCW1 ([facility]) Surgeries/Procedures Procedure Description Date Indications Data Source(s) POCT AMB EKG <td>POCT AMB EKG</td><td>Rou carl</td><td>04/21/2021 1:51 PM EDT</td><td> Benign essential hypertension Chest pain, unspecified type</td><td> </td> 04/21/2021 01:51:00 PM EDT Chest pain, unspecified typeBenign essential hypertens ion [facility] Chest pain, unspecified type Benign essential hypertension Results ID Date Data Source [id number] 10/19/2020 10:14:03 PM EST [facility] Name Value Range Interpretation Code Description Data Brianna rce(s) Supporting Document(s) &PDF [facility] MTDJKa0uKkKRBlXi50/OMMrpPOOvc0LlCSjiVHh1NChiXRGoW5YocPneFSPIXG2PUhZyYHfJVPZPZZUM 0b3 AvCNRhByPKaLY4OX6dUMUvpuHuhaK9wK8vPN8GDMT+Xy7DCU1fg9BwZEe2DDQie0IuCAgvBDm0H3CagH UutjHhCwmvuZDUSECyINIoK7ekniq1eCZmOBw2Zk3YNjAdi4TdXJZhTAnMeq0qn80aHgs6dmN+BwLFYl abtobIbVmWRAAk5eGtKLjCg4zbSoIaOq8rdKK1fvQm Z22q04U+0Zzru23QtXWnf2s47pBsMnofOTdpa/+u4Ba6RA/l/65/qINlSR1LV/+hbpoZ/7rZza+i0fzv Ga+dNDQfBvBgVqm5lmiiPWmQdaWq1iDh248Mp8t+2a9G/53/Uzj8htzp+17mxuGRU0qP71s3s+Damaris+/ [file] aCICGHJJTq3Z5WTHJRA0KsLSAiRskaYVKYXz7kesKP uXebInCqtWTfQ83eUA5j97mRNemFbRXZswVDHmEhfXAuZP9os1SWYfJKTwf9vZtvvtPpzB5AvyGGMW5P mCrT7lhh+FnsSCxotd47pDv5w0VEmYobYXcBKZPpuCbUC4P0CqY8wvoThULO5l+Cn/F2UHsAWbKB3Txk I2cGQ6Lcwqz3r35BemOOzxct3b/MDVA6MNojewH9sq s51VudL/ZseEsFWaJ4imou81IHiqOYEwSOsQbrMcJLqrTc6QLx3qRY4O1722Tp8AQ9dXlWQXX8O/+0pT BfpNvI2GDIgJK64DOVUqtwGEVfoHW+HA2HRT6MmJmLJvICw0q1ytonglbz2fwbC5Q2LamGom9fIedsO2 ZypGAFhh+fL/+/Fylk8LgcqBk9wOleCGoRuAzzxjBw VbXkdQZv0eNa9w57UIoIg+YCtgllELMapyc8euzNRA2pqR1Fc94a+ePDQJ1PsgGE6xM7fK5cXCIPvDeX QvW9RkFeuZIxeL3OTTuAVNak4Bh/nMLd1XC6dpZKy9OMy2/registry np/RE2TZAKUHbiQWFmWRHT25BvCTKjZIf OjHEGiEsGN+cNn0YCNZTzLXgVJfUCleDV1DBwh6K5/ WI/eusbJ5UjqhUxZAtcKdWG+cB7L7fDsa8ozL1JwYXthD4Z57nCdqbpF5shpY4h4ffEJzRjX5MMjY13Y RuWHhO+D2/t94Rq8AoFKDMsTHstVMPPitXInb6P5f4cv25i05PYaX4OOMuoz0t2r7W7irI3Z00LvgM2W YUtuydV3sWcA1VKQj15Hsx6YgFlbHh8bDMgk492T8x RtFWQn0PsKSM+qPEyWHpxhGIZhGMYK+TtMDZi3USjspaWegERfFQ9PJhAbGW1zrn4BSkAuWQEyGbrMUs r5BBzrMN7SvCSnA9wAXonuM6CsN2FmmWnlKE6HjVIfXM3IVA7tB6meErJwDzt4b3XohtNyoQAgksFzqF Y7L7PyfM4dT6QsK8TeJRO4ySTzC8DzcA3AjMO4hRCy TWBsRGSnK7y0XJU9YY0BDO8pmRuyOpS1Kf4JtZw6DCFrYu6MaUB2XKKtR89aGV2TLe9+QBujoRPyKX4L JwqD1L42RHDUSd9iYiboYRohpQHVKBtcwfJQTamKATFXHZVSGSTAKsBVLkdCSEUUFKZG0WSL1YkbuOXR [file] 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/1yC5ppNB6d7FGDrdslx73Rn7Xv5P+11ErVnvBUl [file] ICAgICAgICAgICAgICAgICAgICAgICAgICAgICAgIC AgICAgICAgICAgICAgICAgICAgICAgICAgICAgICAgICAgICAgICAgICAgICAgICAgICAgICAgICAgIA 0KICAgICAgICAgICAgICAgICAgICAgICAgICAgICAgICAgICAgICAgICAgICAgICAgICAgICAgICAgIC AgICAgICAgICAgICAgICAgICAgICAgICAgICAgICAg DPVhFGZxXLTeVL2NUMZqNEFyXDVvJKLcBISiRTCeYSHjIQMeHFAlXDXaGZUuLUTbTSScZHEdWFQxYXZz WIUaJHBoVTKtGQPtUVTqTWHyEXWcGEFeDWVtFRUdNLWaSDJkIWXuNHWxWBJzTBVqMZCyBB9SLIVfGHVm ICAgICAgICAgICAgICAgICAgICAgICAgICAgICAgIC AgICAgICAgICAgICAgICAgICAgICAgICAgICAgICAgICAgICAgICAgICAgICAgICAgICAgICAgICAgIC CpAV2PHYTyKUVwUQXxWPLcQJCmZHWxQPErVAUrXKCvZDTdJKYoAGYpIRYsUAEhPXJgWZPwCQOmVOWvFC AgICAgICAgICAgICAgICAgICAgICAgICAgICAgICAg ADIaJPYjWPWwLCNpUC9PKXHiHAYvACKuUCUbJHCwFSMtWILwXXRlTWFbUUVoVNMxGFZgKGSuJOFjKDEv HTQzEKSjNBQoBHPrSTNoBYCfPYRxPZWhZBGtFRPyVSRtAUVdGOImCEMlWREnITOfMPHyDAIlII7HRSOp ICAgICAgICAgICAgICAgICAgICAgICAgICAgICAgIC AgICAgICAgICAgICAgICAgICAgICAgICAgICAgICAgICAgICAgICAgICAgICAgICAgICAgICAgICAgIC OmIXOkYP6BTLNtZKTzDBNsPDNuJMHhXHQtMCMtOAZeFVQeIWMwYWQtCEJhREQkUNLgGNGiDOZjQFDmAF AgICAgICAgICAgICAgICAgICAgICAgICAgICAgICAg MTXoDLXaELBwOVKlETMyXO8YHJQuNRSrIICwPJMsPPMtUYElXHHkTEYwUOUfXNXnRHGcEYKuWJDoQXRt VSBwGYEnIKCcSPBfYHGpZTFzICUvNTGnNOPcKEGwPVCmGOPdUTWwVOXuHSLeYSOmWYBnXLWlGJZaWG6H HH16sFCbd9X9UKYtHK0rzcw/Ie3KHLztkrNtbANyLU 5EVcCcYU8sfh4RHdXaVQ5uvc6UUXfIIrPoS2H2nUQgXVFhNCFBBiZnJ03lYIqdWn63SOwxOKXvVaUfKG u8Es5RPvIbV6mmZCCcFrM9LZGrQgS0DFIbQnYaIYklMY9Um1BgnHGsAIe+Df1SNN2xt0BqZGt4UVXcNT 0ldb6BUAtQQuZgG9E6kSMkL2K5GUecKm4SSWAbUEMk ZbpxZRSSOOrcKZ5MRW2zaxH0IK1ZmWEsSOBwXUZmeNCgELj4O13isOUrTTwuMI5OETJ+Idania+Mz1JZKDt JVOgYDUiFoHoXOQKKlTcT06rjYHiRZYzQGN5MYNpKq8XENDyA0FrxiOuiFedjyRiBJVuZPWFPL8WKYqx zdIwlCOznHheBS47gDjsYG9XZs0BZlSpTL1byd7XcN JjZq4RKWK7JQ0WHEPiEXJhKZLjWXH5IWZyQpCsTRwrHLGnAIZkSKF4AEXtIZAwAU0YUdVcKHQhOamfXy XiCAKsKGSlyf6RKIRpYBO3CPB1LzAwBILdVWGuVXhvDEUfOCSmDKi9SWFpAHDkQF9OUpFrLOUoEKTqEe PcFBDeQZMrjq9WTCCpPCXlJfS7YwJyKWCcAITyBSfi FYWkTYJ0UHEcFPDuQFDvEJ5DOpLtOKYtVMPwMiPyCJBzKGGlha3AVAArVRTsTlS8AYInZWBrSRDgKDgx AAOoAPJ1OLpcHAYqKIEwQY5DZyVcZRAiTSz6YbNrXWMuWUXpis2GDUHsVXTqMYBrHFBrZFUdGWDqKQcs LQRpCTZ0IJVlYHEmOHYaOW7YMaZvMKDoJScyYlEhSH NbWGCcwc4TLVLfHSKnUgu7ZaExUONrGLOlVIdcTIEvDNM5XEr0HWDtJMXmPB7YRwZaEJTbPOJ8BPOuTK QzCIBfmk7TRICvBOJlVBL5KpBmAKMuEFFtLFdfPDMqBOR0GkyvPURuWKLeIM9RQlHaLLZsYDL5YjDvGG OrDQKwyu0IMBXrGCHwYNtnBSXtLVRsXVBfQVanRNTx UYT9SCxiKBOwHSFfZJ2PUzWvECRnFyO6RhagHMUlZPDwuy2PMSZtSTSxSSb9ATNsWBBbXFFdRFmiJYMy OHS7IZa2FXGjDBZaDM9EPyNfXESaXeq7LpWzOVJrYZDzyv0OSCRxXTNnOBYxJRFtWYTgNWKuLJgfFMYb MTRpMDM0BDMeJZFzII1XDwUpUJSnKsskCGHtWJLkSX Tjib6XKACrXKOrKAO9JIBwDUAyFANoGVzpCYVoNQAaEzQ4LPMuAKZqPX4SQlYmZMXvCZE2WhEkSHTmNH Mkoj9ZTZHjSOK0WEF2IlOvMCGtNWUuWDvkGQOtPQOlFUt6DDBaLTQdWS9ZNcRmJAIiGUS3LMKeGLYkOG Xvuv0SHPNjOBH5JJn6ECMpLHJyDPQqOJycZLDiATB1 FpY3VVEkRFRzME2SUlAlLKAkNyryDYSjISTdANJfpb9RJSFmSEZ5RbadRiOcBKUdLXAeLHvsVIOnFGJ8 GkHsVKXvTPLyTM2FWkWxEEmhUPDBWds7XUrgP8j0LAS2XH0ZW2Wfm5PxEFFjETMURWzkRK8umpFoFOHe Ra5YV6oJQem8SGi1Yja8FAUpQPE0QHFrCnI4D5PdQr EqAouoFFC8IF9rSRhdKUspEwZ0OKJ6ODVbCJYrASr3NGJiYiQvTWI6GshjOoByYD2JKd0ONgB4TNR9nR IfJi9ZStn4QbvKTpVuAR2JGVr= Procedure Social History Code Duration Value Status Description Data Source(s ) Smoking 07/12/2021 12:00:00 AM EDT Never Smoker completed Never S moker eCW1 ([facility]) Smoking 06/14/2021 12:00:00 AM EDT Never Smoker completed Never S moker eCW1 ([facility]) Smoking 06/14/2021 12:00:00 AM EDT Never Smoker completed Never S moker eCW1 ([facility]) Alcohol intake 04/21/2021 12:00:00 AM EDT Current drinker of al cohol (finding) completed Current drinker of alcohol (finding) [facility] Smoking 04/11/2021 12:00:00 AM EDT Never Smoker completed Never S moker eCW1 ([facility]) Smoking 04/11/2021 12:00:00 AM EDT Never Smoker completed Never S moker eCW1 ([facility]) Smoking 04/11/2021 12:00:00 AM EDT Never Smoker completed Never S moker eCW1 ([facility]) Smoking 01/23/2021 12:00:00 AM EDT Never Smoker completed Never S moker eCW1 ([facility]) Smoking 01/23/2021 12:00:00 AM EDT Never Smoker completed Never S moker eCW1 ([facility]) Smoking 01/23/2021 12:00:00 AM EDT Never Smoker completed Never S moker eCW1 ([facility]) Smoking 01/23/2021 12:00:00 AM EDT Never Smoker completed Never S moker eCW1 ([facility]) Smoking 10/27/2020 12:00:00 AM EST Never Smoker completed Never S moker eCW1 ([facility]) Smoking 10/27/2020 12:00:00 AM EST Never Smoker completed Never S moker eCW1 ([facility]) Smoking 10/27/2020 12:00:00 AM EST Never Smoker completed Never S moker eCW1 ([facility]) Alcohol intake 10/19/2020 12:00:00 AM EST Yes completed [facility] Smoking 10/19/2020 12:00:00 AM EST Never smoker completed Never s moker [facility] Smoking 09/14/2020 12:00:00 AM EST Never Smoker completed Never S moker eCW1 ([facility]) Vital Signs ID Date Data Source UNK Name Value Range Interpretation Code Description Data Source(s) Body weight 238.4 [lb_av] 238.4 [lb_av] eCW1 ([facility]) Body weight 108.14 kg 108.14 kg eCW1 ([facility]) Body height 73 [in_i] 73 [in_i] eCW1 ([facility]) Body mass index (BMI) [Ratio] 31.45 kg/m2 31.45 kg/m2 eCW1 ([facility]) Heart rate 98 /min 98 /min eCW1 ([facility]) Respiratory rate 18 /min 18 /min eCW1 ([facility]) Body temperature 98.0 [degF] 98.0 [degF] eCW1 ( [facility]) Systolic blood pressure 120 mm[Hg] 120 mm[Hg] e CW1 ([facility]) Diastolic blood pressure 80 mm[Hg] 80 mm[Hg] eCW1 ([facility]) Systolic blood pressure 120 mm[Hg] 120 mm[Hg] [facility] Diastolic blood pressure 80 mm[Hg] 80 mm[Hg] [facility] Heart rate 88 /min 88 /min [facility] Respiratory rate 18 /min 18 /min [facility] Body weight 107.502 kg 107.502 kg [facility] Body mass index (BMI) [Ratio] 31.27 kg/m2 31.27 kg/m2 [facility] Oxygen saturation in Arterial blood by Pulse oximetry 97 % 97 % [facility] Body weight 238 [lb_av] 238 [lb_av] eCW1 ([facility]) Body height 73 [in_i] 73 [in_i] eCW1 ([facility]) Body mass index (BMI) [Ratio] 31.40 kg/m2 31.40 kg/m2 [facility] ([facility]) Heart rate 96 /min 96 /min eCW1 ([facility]) Respiratory rate 18 /min 18 /min eCW1 ([facility]) Body temperature 99.0 [degF] 99.0 [degF] eCW1 ( [facility]) Systolic blood pressure 122 mm[Hg] 122 mm[Hg] e CW1 ([facility]) Diastolic blood pressure 80 mm[Hg] 80 mm[Hg] eCW1 ([facility]) Body weight 236 [lb_av] 236 [lb_av] eCW1 ([facility]) Body height 73 [in_i] 73 [in_i] eCW1 ([facility]) Body mass index (BMI) [Ratio] 31.13 kg/m2 31.13 kg/m2 eCW1 ([facility]) Heart rate 91 /min 91 /min eCW1 ([facility]) Respiratory rate 18 /min 18 /min eCW1 ([facility]) Body temperature 97.9 [degF] 97.9 [degF] eCW1 ( [facility]) Systolic blood pressure 108 mm[Hg] 108 mm[Hg] e CW1 ([facility]) Diastolic blood pressure 74 mm[Hg] 74 mm[Hg] eCW1 ([facility]) Body weight 236 [lb_av] 236 [lb_av] eCW1 ([facility]) Body height 73 [in_i] 73 [in_i] eCW1 ([facility]) Body mass index (BMI) [Ratio] 31.13 kg/m2 31.13 kg/m2 eCW1 ([facility]) Respiratory rate 17 /min 17 /min eCW1 ([facility]) Body temperature 98.1 [degF] 98.1 [degF] eCW1 ( [facility]) Systolic blood pressure 118 mm[Hg] 118 mm[Hg] e CW1 ([facility]) Diastolic blood pressure 80 mm[Hg] 80 mm[Hg] eCW1 ([facility]) Heart rate 91 /min 91 /min eCW1 ([facility]) Systolic blood pressure 120 mm[Hg] 120 mm[Hg] [facility] Diastolic blood pressure 80 mm[Hg] 80 mm[Hg] [facility] Heart rate 86 /min 86 /min [facility] Body weight 106.142 kg 106.142 kg [facility] Body mass index (BMI) [Ratio] 30.87 kg/m2 30.87 kg/m2 [facility] Oxygen saturation in Arterial blood by Pulse oximetry 95 % 95 % [facility] Body weight 233 [lb_av] 233 [lb_av] eCW1 ([facility]) Body height 73 [in_i] 73 [in_i] eCW1 ([facility]) Body mass index (BMI) [Ratio] 30.74 kg/m2 30.74 kg/m2 eCW1 ([facility]) Heart rate 94 /min 94 /min eCW1 ([facility]) Respiratory rate 18 /min 18 /min eCW1 ([facility]) Body temperature 98.0 [degF] 98.0 [degF] eCW1 ( [facility]) Systolic blood pressure 142 mm[Hg] 142 mm[Hg] e CW1 ([facility]) Diastolic blood pressure 76 mm[Hg] 76 mm[Hg] eCW1 ([facility])
[2021-09-07] MEDS ORDERED: ISOVUE-370 76% 100ML VIAL As Ordered ONE (20:42)
[2021-09-07 20:48] LABS: BASO % 0.3 % (0.0-1.0); EOS # 0.1 10^3/uL (0.0-0.5); EOS % 1.2 % (0.0-3.0); HEMATOCRIT 42.5 % (42.0-52.0); HEMOGLOBIN 13.5 g/dl (13.5-17.5); LYMPH # 1.4 10^3/uL (1.5-5.0); LYMPH % 20.2 % (24.0-44.0); MEAN CORPUSCULAR HEMOGLOBIN 26.3 pg (27.0-33.0); MEAN CORPUSCULAR HGB CONC 31.8 g/dl (32.0-36.5); MEAN CORPUSCULAR VOLUME 82.8 fl (80.0-96.0); MONO # 0.6 10^3/uL (0.0-0.8); MONO % 8.7 % (2.0-8.0); NEUTROPHILS # 4.6 10^3/uL (1.5-8.5); NEUTROPHILS % 69.3 % (36.0-66.0); PLATELET COUNT, AUTOMATED 216 10^3/uL (150-450); RED BLOOD COUNT 5.13 10^6/uL (4.30-6.10); WHITE BLOOD COUNT 6.7 10^3/uL (4.0-10.0)
[2021-09-07 20:59] LABS: INR 1.12; PROTHROMBIN TIME 14.9 SECONDS (12.7-14.5)
[2021-09-07 21:00] LABS: PARTIAL THROMBOPLASTIN TIME 35.2 SECONDS (25.9-37.0)
[2021-09-07 21:11] LABS: BILIRUBIN,DIRECT 0.2 MG/DL (0.0-0.2); BILIRUBIN,TOTAL 0.7 MG/DL (0.2-1.0); TOTAL PROTEIN 7.1 GM/DL (6.4-8.2)
--- NOTE | 2021-09-07 21:46 | REPVR ---
PROCEDURE INFORMATION: Exam: CT Abdomen And Pelvis With Contrast Exam date and time: 09/07/2021 8:55 PM Age: 61 years old Clinical indication: Abdominal pain; Epigastric; Additional info: Epigastric pain, rectal bleeding TECHNIQUE: Imaging protocol: Computed tomography of the abdomen and pelvis with contrast. Radiation optimization: All CT scans at this facility use at least one of these dose optimization techniques: automated exposure control; mA and/or kV adjustment per patient size (includes targeted exams where dose is matched to clinical indication); or iterative reconstruction. Contrast material: ISOVUE 370; Contrast volume: 100 ml; Contrast route: INTRAVENOUS (IV); COMPARISON: CT ABD PELVIS W/O CONTRAST 08/18/2017 7:21 PM FINDINGS: Lungs: Small patchy infiltrate left lower lobe not demonstrated previously. Diaphragm: A small hiatal hernia is present. Liver: There is a diffuse decrease in hepatic parenchymal density, consistent with steatosis. Gallbladder and bile ducts: Normal. No calcified stones. No ductal dilation. Pancreas: Normal. No ductal dilation. Spleen: There is wokl-kt-eudxshki splenomegaly with a maximum span of 15 centimeters. No focal abnormalities demonstrated. Adrenal glands: There is a focal hypodense mass in the right adrenal gland measuring 1.3 x 2.4 cm., consistent in appearance and density with a benign adrenal adenoma. Kidneys and ureters: Multiple bilateral simple renal cysts measure up to 6.8 cm on the left. No follow-up suggested. Stomach and bowel: Ahaustral appearance of the rectosigmoid colon, findings which may be secondary to incomplete distention although changes secondary to chronic colitis not excluded. No acute inflammation demonstrated. Appendix: No evidence of appendicitis. Intraperitoneal space: Unremarkable. No free air. No significant fluid collection. Vasculature: Unremarkable. No abdominal aortic aneurysm. Lymph nodes: Unremarkable. No enlarged lymph nodes. Urinary bladder: Unremarkable as visualized. Reproductive: Unremarkable as visualized. Bones/joints: Moderate central spinal stenosis L3-L4, moderate to severe central spinal stenosis L4-L5. Soft tissues: Small right inguinal hernia without incarceration. IMPRESSION: 1. Small patchy infiltrate left lower lobe not demonstrated previously. 2. There is wbtl-yd-seitprey splenomegaly with a maximum span of 15 centimeters. No focal abnormalities demonstrated. 3. There is a diffuse decrease in hepatic parenchymal density, consistent with steatosis. 4. A small hiatal hernia is present. 5. There is a focal hypodense mass in the right adrenal gland measuring 1.3 x 2.4 cm., consistent in appearance and density with a benign adrenal adenoma. 6. Multiple bilateral simple renal cysts measure up to 6.8 cm on the left. No follow-up suggested. 7. Ahaustral appearance of the rectosigmoid colon, findings which may be secondary to incomplete distention although changes secondary to chronic colitis not excluded. No acute inflammation demonstrated. COMMENTS: Consistent with the [employer]'s Incidental Findings Committee white paper (J Am Senia Radiol 2018): Any incidental renal lesion less than 1 cm or classified as too small to characterize, or any incidental cystic renal lesion characterized as simple-appearing, is likely benign. No follow-up imaging is recommended for these lesions per consensus recommendations based on imaging criteria. Electronically signed by: Lenin Marsh On 09/07/2021 21:46:07 PM
[2021-09-07 22:55] VITALS: BP 126/60
--- NOTE | 2021-09-08 06:41 | ED PDOC ---
Post-Departure Follow-Up dr yu faxed formal report of ct abd/p for fu Mera Stuart MD Sep 08, 2021 06:41
== END 2021-09-07 22:48 | disposition home or self-care (01) ==
LOC: M ED 16:32
DX: K92.2 Gastrointestinal hemorrhage, unspecified (principal); K62.5 Hemorrhage of anus and rectum; R51.9 Headache, unspecified; J45.909 Unspecified asthma, uncomplicated; K44.9 Diaphragmatic hernia without obstruction or gangrene; R91.8 Other nonspecific abnormal finding of lung field; R93.2 Abnormal findings on diagnostic imaging of liver and biliary tract; N28.1 Cyst of kidney, acquired; Z79.82 Long term (current) use of aspirin; Z79.899 Other long term (current) drug therapy; Z91.89 Other specified personal risk factors, not elsewhere classified; Z88.6 Allergy status to analgesic agent; Z88.5 Allergy status to narcotic agent; Z88.8 Allergy status to other drugs, medicaments and biological substances
CPT/HCPCS: 74177; 80047; 80076; 83690; 85025; 85610; 85730; 99284; Q9967

== ENCOUNTER → 2021-10-18 | Outpatient (REF) | payer OTHER ==
[2021-10-18 14:16] LABS: MAGNESIUM LEVEL 1.8 MG/DL (1.8-2.4); PERCENT SATURATION 17.8 % (19.7-50.0)
== END ==
LOC: M LAB REF 12:57
PROVIDERS: ATTEND Internal Medicine Nephrology
DX: D46.9 Myelodysplastic syndrome, unspecified (principal); E83.42 Hypomagnesemia; N18.31 Chronic kidney disease, stage 3a

== ENCOUNTER → 2021-11-28 | Outpatient (REF) | payer OTHER | LOC: M LAB REF 16:34 | PROVIDERS: ATTEND Physician Assistant Medical | DX: R50.9 Fever, unspecified (principal); R53.83 Other fatigue ==

== ENCOUNTER → 2022-02-07 | Outpatient (CLI) | payer OTHER ==
[2022-02-07 11:00] LABS: ALBUMIN 3.8 GM/DL (3.2-5.2); BILIRUBIN,TOTAL 1.1 MG/DL (0.2-1.0); CALCIUM LEVEL 9.3 MG/DL (8.8-10.2); CHOLESTEROL RISK RATIO 2.933 (<5); CREATININE FOR GFR 1.46 MG/DL (0.70-1.30); GLOMERULAR FILTRATION RATE 52.4 (>49); POTASSIUM SERUM 3.4 MEQ/L (3.5-5.1); TOTAL PROTEIN 6.2 GM/DL (6.4-8.2)
[2022-02-07 11:13] LABS: HEMOGLOBIN A1c 7.8 %
== END ==
LOC: M PLALAB 07:49
PROVIDERS: ATTEND Student in an Organized Health Care Education/Training Program
DX: K21.9 Gastro-esophageal reflux disease without esophagitis (principal); E11.9 Type 2 diabetes mellitus without complications; E78.5 Hyperlipidemia, unspecified

== ENCOUNTER 2022-04-17 10:43 | Emergency (ER) | payer OTHER ==
[~2022-04-17] VITALS: Ht 185.4 cm; Wt 101.8 kg
[~2022-04-17 10:43] MED LIST changes: +CHLO1TAB35 PO; -CORITAB5 PO
[2022-04-17 11:28] LABS: BASO % 0.4 % (0.0-1.0); HEMATOCRIT 40.8 % (42.0-52.0); HEMOGLOBIN 13.2 g/dl (13.5-17.5); LYMPH # 0.4 10^3/uL (1.5-5.0); LYMPH % 6.5 % (24.0-44.0); MEAN CORPUSCULAR HEMOGLOBIN 26.9 pg (27.0-33.0); MEAN CORPUSCULAR HGB CONC 32.4 g/dl (32.0-36.5); MEAN CORPUSCULAR VOLUME 83.1 fl (80.0-96.0); MONO # 0.5 10^3/uL (0.0-0.8); MONO % 8.3 % (2.0-8.0); NEUTROPHILS # 4.8 10^3/uL (1.5-8.5); NEUTROPHILS % 84.4 % (36.0-66.0); PLATELET COUNT, AUTOMATED 134 10^3/uL (150-450); RED BLOOD COUNT 4.91 10^6/uL (4.30-6.10); WHITE BLOOD COUNT 5.7 10^3/uL (4.0-10.0)
[2022-04-17 11:53] LABS: ALBUMIN 3.5 GM/DL (3.2-5.2); BILIRUBIN,DIRECT 0.4 MG/DL (0.0-0.2); BILIRUBIN,TOTAL 1.6 MG/DL (0.2-1.0); CALCIUM LEVEL 9.5 MG/DL (8.8-10.2); CREATININE FOR GFR 1.42 MG/DL (0.70-1.30); GLOMERULAR FILTRATION RATE 54.1 (>49); POTASSIUM SERUM 3.9 MEQ/L (3.5-5.1); TOTAL PROTEIN 6.1 GM/DL (6.4-8.2)
[2022-04-17] MEDS ORDERED: ISOVUE-370 76% 100ML VIAL As Ordered ONE (12:07)
[2022-04-17 14:30] VITALS: BP 130/82
== END 2022-04-17 14:54 | disposition home or self-care (01) ==
LOC: EDBD 10:43 → M ED 10:43
DX: R10.9 Unspecified abdominal pain (principal); E11.9 Type 2 diabetes mellitus without complications; I10 Essential (primary) hypertension; E78.5 Hyperlipidemia, unspecified; G43.909 Migraine, unspecified, not intractable, without status migrainosus; N18.30 Chronic kidney disease, stage 3 unspecified; J45.909 Unspecified asthma, uncomplicated; Z88.6 Allergy status to analgesic agent; Z88.5 Allergy status to narcotic agent; Z88.8 Allergy status to other drugs, medicaments and biological substances; Z91.09 Other allergy status, other than to drugs and biological substances; Z79.811 Long term (current) use of aromatase inhibitors; Z79.51 Long term (current) use of inhaled steroids; Z79.4 Long term (current) use of insulin; Z79.899 Other long term (current) drug therapy
CPT/HCPCS: 36415; 70450; 71275; 74177; 80047; 80048; 80076; 81001; 83690; 85025; 93005; 99284; Q9967

== ENCOUNTER → 2022-04-19 | Outpatient (CLI) | payer OTHER ==
[2022-04-19 13:05] LABS: HEMATOCRIT 40.7 % (42.0-52.0); HEMOGLOBIN 12.9 g/dl (13.5-17.5); MEAN CORPUSCULAR HEMOGLOBIN 26.7 pg (27.0-33.0); MEAN CORPUSCULAR HGB CONC 31.7 g/dl (32.0-36.5); MEAN CORPUSCULAR VOLUME 84.1 fl (80.0-96.0); PLATELET COUNT, AUTOMATED 158 10^3/uL (150-450); RED BLOOD COUNT 4.84 10^6/uL (4.30-6.10); WHITE BLOOD COUNT 4.9 10^3/uL (4.0-10.0)
[2022-04-19 13:23] LABS: APPEARANCE, URINE HAZY (CLEAR); BACTERIA, URINE AUTO NEGATIVE (NEGATIVE); BILIRUBIN, URINE AUTO 1+ (NEGATIVE); BLOOD, URINE BLOOD NEGATIVE (NEGATIVE); COLOR, URINE AMBER (YELLOW); GLUCOSE, URINE (UA) AUTO NEGATIVE (NEGATIVE); KETONE, URINE AUTO TRACE mg/dL (NEGATIVE); LEUKOCYTE ESTERASE, URINE AUTO NEGATIVE (NEGATIVE); MUCUS, URINE SMALL (NEGATIVE); NITRITE, URINE AUTO NEGATIVE (NEGATIVE); PROTEIN, URINE AUTO 1+ mg/dL (NEGATIVE); RBC, URINE AUTO 1 /HPF (0-3); SQUAMOUS EPITHELIAL CELL UR AU 1 /HPF (0-6); WBC, URINE AUTO 7 /HPF (0-3)
[2022-04-19 13:43] LABS: ALBUMIN 3.5 GM/DL (3.2-5.2); BILIRUBIN,DIRECT 0.3 MG/DL (0.0-0.2); BILIRUBIN,TOTAL 0.9 MG/DL (0.2-1.0); TOTAL PROTEIN 6.3 GM/DL (6.4-8.2)
== END ==
LOC: M PLALAB 11:19
PROVIDERS: ATTEND Student in an Organized Health Care Education/Training Program
DX: R50.9 Fever, unspecified (principal); N20.0 Calculus of kidney; D64.9 Anemia, unspecified

== ENCOUNTER → 2022-05-02 | Outpatient (CLI) | payer OTHER ==
[2022-05-02 17:45] LABS: BASO % 0.3 % (0.0-1.0); EOS # 0.1 10^3/uL (0.0-0.5); EOS % 0.7 % (0.0-3.0); HEMATOCRIT 40.7 % (42.0-52.0); LYMPH # 1.2 10^3/uL (1.5-5.0); LYMPH % 15.3 % (24.0-44.0); MEAN CORPUSCULAR HEMOGLOBIN 26.7 pg (27.0-33.0); MEAN CORPUSCULAR HGB CONC 31.9 g/dl (32.0-36.5); MEAN CORPUSCULAR VOLUME 83.7 fl (80.0-96.0); MONO # 0.6 10^3/uL (0.0-0.8); MONO % 8.2 % (2.0-8.0); NEUTROPHILS # 5.8 10^3/uL (1.5-8.5); NEUTROPHILS % 75.2 % (36.0-66.0); PLATELET COUNT, AUTOMATED 228 10^3/uL (150-450); RED BLOOD COUNT 4.86 10^6/uL (4.30-6.10); WHITE BLOOD COUNT 7.7 10^3/uL (4.0-10.0)
[2022-05-02 18:09] LABS: C REACTIVE PROTEIN QUANTITATIV < 0.30 MG/DL (0.00-0.30); FREE T4 1.15 NG/DL (0.76-1.46)
[2022-05-02 18:12] LABS: HEMOGLOBIN A1c 6.6 %
[2022-05-02 18:13] LABS: MALB URINE SIEMENS 74.1 MG/L
== END ==
LOC: M PLALAB 15:05
PROVIDERS: ATTEND Internal Medicine Hematology
DX: D64.9 Anemia, unspecified (principal); E11.9 Type 2 diabetes mellitus without complications

== ENCOUNTER → 2022-05-15 | Outpatient (REF) | payer OTHER | LOC: M LAB REF 21:56 | PROVIDERS: ATTEND Physician Assistant Medical | DX: R05.9 Cough, unspecified (principal); R50.9 Fever, unspecified; R07.0 Pain in throat ==

== ENCOUNTER 2022-06-14 14:52 | Emergency (ER) | payer OTHER ==
[~2022-06-14] VITALS: Ht 185.4 cm; Wt 100.0 kg
[2022-06-14] MEDS ORDERED: LIDOCAINE 4% CREAM 5GM (LMX4) TOP ONE (17:20)
[2022-06-14 20:01] VITALS: BP 122/67
== END 2022-06-14 20:02 | disposition home or self-care (01) ==
LOC: M ED 14:52
DX: S00.03XA Contusion of scalp, initial encounter (principal); W22.8XXA Striking against or struck by other objects, initial encounter; M54.2 Cervicalgia; I10 Essential (primary) hypertension; J45.909 Unspecified asthma, uncomplicated; Z88.6 Allergy status to analgesic agent; Z88.5 Allergy status to narcotic agent; Z88.8 Allergy status to other drugs, medicaments and biological substances; Z79.51 Long term (current) use of inhaled steroids; Z79.811 Long term (current) use of aromatase inhibitors; Z79.4 Long term (current) use of insulin; Z79.899 Other long term (current) drug therapy; Y92.009 Unspecified place in unspecified non-institutional (private) residence as the place of occurrence of the external cause; Y93.9 Activity, unspecified; Y99.9 Unspecified external cause status

== ENCOUNTER 2022-08-11 18:52 | Emergency (ER) | payer OTHER ==
[~2022-08-11] VITALS: Ht 185.4 cm; Wt 90.5 kg
[2022-08-11] MEDS ORDERED: ACETAMINOPHEN 325 MG TAB PO ONE (19:10)
[2022-08-11 21:00] VITALS: BP 140/84
== END 2022-08-11 21:20 | disposition home or self-care (01) ==
LOC: M ED 18:52
DX: G44.309 Post-traumatic headache, unspecified, not intractable (principal); E11.9 Type 2 diabetes mellitus without complications; I10 Essential (primary) hypertension; J45.909 Unspecified asthma, uncomplicated; H54.8 Legal blindness, as defined in USA; Z88.6 Allergy status to analgesic agent; Z88.5 Allergy status to narcotic agent; Z79.51 Long term (current) use of inhaled steroids; Z79.811 Long term (current) use of aromatase inhibitors; Z79.899 Other long term (current) drug therapy; Z79.4 Long term (current) use of insulin

== ENCOUNTER → 2022-08-14 | Outpatient (CLI) | payer OTHER | LOC: M PLAIMG 11:33 | PROVIDERS: ATTEND Physician Assistant | DX: N28.1 Cyst of kidney, acquired (principal) ==

== ENCOUNTER → 2022-08-14 | Outpatient (CLI) | payer OTHER ==
[2022-08-14 14:14] LABS: HEMATOCRIT 42.2 % (42.0-52.0); HEMOGLOBIN 13.6 g/dl (13.5-17.5); MEAN CORPUSCULAR HEMOGLOBIN 27.9 pg (27.0-33.0); MEAN CORPUSCULAR HGB CONC 32.2 g/dl (32.0-36.5); MEAN CORPUSCULAR VOLUME 86.7 fl (80.0-96.0); PLATELET COUNT, AUTOMATED 212 10^3/uL (150-450); RED BLOOD COUNT 4.87 10^6/uL (4.30-6.10)
[2022-08-14 14:34] LABS: HEMOGLOBIN A1c 6.4 %
[2022-08-14 14:47] LABS: ALBUMIN 3.8 GM/DL (3.2-5.2); BILIRUBIN,TOTAL 1.1 MG/DL (0.2-1.0); C REACTIVE PROTEIN QUANTITATIV 0.3 MG/DL (0.00-0.30); CALCIUM LEVEL 9.7 MG/DL (8.8-10.2); CHOLESTEROL RISK RATIO 2.473 (<5); CREATININE FOR GFR 1.37 MG/DL (0.70-1.30); FREE T4 1.2 NG/DL (0.76-1.46); GLOMERULAR FILTRATION RATE 56.2 (>49); THYROID STIMULATING HORMONE 0.479 uIU/ML (0.358-3.740); TOTAL PROTEIN 6.5 GM/DL (6.4-8.2)
[2022-08-15 23:41] LABS: TOTAL 25(OH) VITAMIN D 49.2 NG/ML (30.0-100.0)
== END ==
LOC: M PLALAB 11:31
PROVIDERS: ATTEND Internal Medicine Hematology
DX: E11.9 Type 2 diabetes mellitus without complications (principal)

== ENCOUNTER → 2022-09-12 | Outpatient (CLI) | payer OTHER | LOC: M WHC 11:52 | PROVIDERS: ATTEND Otolaryngology | DX: E04.1 Nontoxic single thyroid nodule (principal) ==

== ENCOUNTER → 2022-10-11 | Outpatient (CLI) | payer OTHER | LOC: M SOG 08:11 | PROVIDERS: ATTEND Orthopaedic Surgery | DX: M25.562 Pain in left knee (principal) ==

== ENCOUNTER → 2022-10-17 | Outpatient (CLI) | payer OTHER ==
[~2022-10-17] MED LIST changes: +LIDOCAINE 1% MDV 20ML VIAL As Ordered ONE
[2022-10-17 10:32] VITALS: BP 142/84
== END ==
LOC: M IRPRO 09:00
PROVIDERS: ATTEND Otolaryngology
DX: E07.89 Other specified disorders of thyroid (principal)

== ENCOUNTER → 2022-12-20 | Outpatient (CLI) | payer OTHER ==
[~2022-12-20] MED LIST changes: -LIDOCAINE 1% MDV 20ML VIAL As Ordered ONE
== END ==
LOC: M RAD 07:24
PROVIDERS: ATTEND Physician Assistant
DX: N50.89 Other specified disorders of the male genital organs (principal)

== ENCOUNTER → 2022-12-20 | Outpatient (CLI) | payer OTHER | LOC: M RAD 12:39 | PROVIDERS: ATTEND Physician Assistant | DX: N20.0 Calculus of kidney (principal) ==

== ENCOUNTER → 2023-02-21 | Outpatient (CLI) | payer OTHER | LOC: M RAD 11:04 | PROVIDERS: ATTEND Otolaryngology | DX: E04.2 Nontoxic multinodular goiter (principal) ==

== ENCOUNTER → 2023-02-28 | Outpatient (CLI) | payer OTHER ==
[2023-02-28 11:32] LABS: HEMATOCRIT 38.3 % (42.0-52.0); HEMOGLOBIN 12.5 g/dl (13.5-17.5); MEAN CORPUSCULAR HEMOGLOBIN 27.8 pg (27.0-33.0); MEAN CORPUSCULAR HGB CONC 32.6 g/dl (32.0-36.5); MEAN CORPUSCULAR VOLUME 85.1 fl (80.0-96.0); PLATELET COUNT, AUTOMATED 199 10^3/uL (150-450); WHITE BLOOD COUNT 5.4 10^3/uL (4.0-10.0)
[2023-02-28 11:42] LABS: C REACTIVE PROTEIN QUANTITATIV < 0.40 MG/DL (<1.0)
[2023-02-28 11:43] LABS: ALBUMIN 3.8 G/DL (3.2-5.2); ALKALINE PHOSPHATASE 70 U/L (46-116); ALT/SGPT 23 U/L (7.0-40); AST/SGOT 27 U/L (<34); BILIRUBIN,TOTAL 0.9 MG/DL (0.3-1.2); BLOOD UREA NITROGEN 23 MG/DL (9-23); CALCIUM LEVEL 9.2 MG/DL (8.3-10.6); CARBON DIOXIDE LEVEL 32 MMOL/L (20-31); CHLORIDE LEVEL 105 MMOL/L (98-107); CHOLESTEROL LEVEL 95 MG/DL (<200); CHOLESTEROL RISK RATIO 2.91 (<5); CREATININE FOR GFR 1.29 MG/DL (0.70-1.30); GLOMERULAR FILTRATION RATE > 60.0 (>49); GLUCOSE, FASTING 122 MG/DL (74-106); HDL CHOLESTEROL 32.6 MG/DL (>40); LDL CHOLESTEROL 40.8 MG/DL (<100); NON-HDL-C 62.4 MG/DL; POTASSIUM SERUM 3.8 MMOL/L (3.5-5.1); SODIUM LEVEL 139 MMOL/L (136-145); THYROID STIMULATING HORMONE 0.555 uIU/ML (0.55-4.78); TOTAL 25(OH) VITAMIN D 50.1 NG/ML (20.0-100.0); TOTAL PROTEIN 6.3 G/DL (5.7-8.2); TRIGLYCERIDES LEVEL 108 MG/DL (<150)
[2023-02-28 11:57] LABS: VITAMIN B12 LEVEL 753 PG/ML (211-911)
[2023-02-28 11:57] LABS: CREATININE, URINE 374.1 MG/DL; MAU/CREAT RATIO 4.2 MCG/MG (0.0-30.0)
[2023-02-28 12:01] LABS: HEMOGLOBIN A1c 6.5 % (4.0-6.0)
== END ==
LOC: M LAB 09:44
PROVIDERS: ATTEND Internal Medicine Hematology
DX: E11.29 Type 2 diabetes mellitus with other diabetic kidney complication (principal)

== ENCOUNTER → 2023-03-12 | Outpatient (CLI) | payer OTHER ==
[2023-03-12 11:25] LABS: PERCENT SATURATION 11.3 % (19.7-50.0)
[2023-03-12 11:27] LABS: FERRITIN 7.5 NG/ML (10.5-307.3)
== END ==
LOC: M LAB 09:50
PROVIDERS: ATTEND Internal Medicine Hematology
DX: D64.9 Anemia, unspecified (principal); Z12.5 Encounter for screening for malignant neoplasm of prostate

== ENCOUNTER 2023-05-28 16:17 | Emergency (ER) | payer OTHER ==
[~2023-05-28 16:17] MED LIST changes: -K-TA10TA2 PO; +POTA-165 PO
[2023-05-28] MEDS ORDERED: LIDOCAINE 1% MDV 20ML VIAL SC ONE (18:55)
[2023-05-28] MEDS ORDERED: CEPH500C PO (20:44)
[2023-05-28] MEDS ORDERED: CEPHALEXIN 500 MG CAP PO ONE (20:50)
[2023-05-28 20:51] VITALS: BP 182/108; TEMP 98.2; O2SAT 98
== END 2023-05-28 20:56 | disposition home or self-care (01) ==
LOC: M ED 16:17
DX: S66.324A Laceration of extensor muscle, fascia and tendon of right ring finger at wrist and hand level, initial encounter (principal); Y28.2XXA Contact with sword or dagger, undetermined intent, initial encounter; I10 Essential (primary) hypertension; E11.9 Type 2 diabetes mellitus without complications; Z88.5 Allergy status to narcotic agent; Z88.8 Allergy status to other drugs, medicaments and biological substances; Z91.048 Other nonmedicinal substance allergy status; Z79.52 Long term (current) use of systemic steroids; Z79.811 Long term (current) use of aromatase inhibitors; Z79.4 Long term (current) use of insulin; Z79.899 Other long term (current) drug therapy
CPT/HCPCS: 12001; 73120; 96372; 99284; J0665

== ENCOUNTER 2023-05-30 18:43 | Observation (INO) | payer OTHER ==
[~2023-05-30] VITALS: Ht 185.4 cm; Wt 97.3 kg
[~2023-05-30 18:43] MED LIST changes: +CEPH500C PO
[2023-05-30 21:06] VITALS: BP 132/78; TEMP 98.2; O2SAT 99
[2023-05-30 22:03] VITALS: O2SAT 98
[2023-05-31] MEDS ORDERED: GLUCAGON INJ 1MG VIAL SC PRN (02:55)
[2023-05-31] MEDS ORDERED: GLUCOSE 4GM CHEW TABLET PO PRN (02:55)
[2023-05-31] MEDS ORDERED: ONDANSETRON 4MG 2ML VIAL IV PRN ×2 (02:55→18:35)
[2023-05-31] MEDS ORDERED: DEXTROSE 50% 50ML SYRINGE IV PRN (02:55)
[2023-05-31] MEDS ORDERED: HYDROMORPHONE HCL 0.5 MG/ 0.5 ML SYRINGE IV PRN ×3 (02:55→18:35)
[2023-05-31] MEDS ORDERED: CEPH500C PO (04:30)
[2023-05-31] MEDS ORDERED: SENN8.6T58 PO (04:30)
[2023-05-31] MEDS ORDERED: LORA-674 PO (04:30)
[2023-05-31] MEDS ORDERED: SUMA50TA2 PO (04:30)
[2023-05-31] MEDS ORDERED: AMLO1TAB24 PO (04:30)
[2023-05-31] MEDS ORDERED: ATOR80TA59 PO (04:30)
[2023-05-31] MEDS ORDERED: ALBU8.5H INH (04:30)
[2023-05-31] MEDS ORDERED: FLON1SPR NARES (04:30)
[2023-05-31] MEDS ORDERED: FERR1TAB8 PO (04:30)
[2023-05-31] MEDS ORDERED: POTA4.25 PO (04:30)
[2023-05-31] MEDS ORDERED: HOME MED LIST COMPLETE! XX SCH (04:35)
[2023-05-31] MEDS: INSULIN LISPRO (NovoLOG) PER UNIT SC SCH ×3 (06:00→18:00)
[2023-05-31 06:46] LABS: BLOOD UREA NITROGEN 21 MG/DL (9-23); CARBON DIOXIDE LEVEL 29 MMOL/L (20-31); CHLORIDE LEVEL 107 MMOL/L (98-107); CREATININE FOR GFR 1.17 MG/DL (0.70-1.30); GLOMERULAR FILTRATION RATE > 60.0 (>49); GLUCOSE, FASTING 114 MG/DL (74-106); POTASSIUM SERUM 3.7 MMOL/L (3.5-5.1); SODIUM LEVEL 143 MMOL/L (136-145)
[2023-05-31 07:01] VITALS: BP 134/78; TEMP 97.1; O2SAT 96
[2023-05-31] MEDS: amLODIPine 5 MG TAB PO SCH (09:38)
[2023-05-31] MEDS: CARVedilol 12.5 MG TAB PO SCH ×2 (09:38→21:41)
[2023-05-31 14:00] VITALS: BP 131/79; TEMP 98.1; O2SAT 98
[2023-05-31] MEDS ORDERED: LIDOCAINE 2% 100MG/5ML SDV (FOR ANES.) As Ordered ONE (16:48)
[2023-05-31] MEDS ORDERED: MIDAZOLAM INJ 2MG/2ML VIAL As Ordered ONE (16:48)
[2023-05-31] MEDS ORDERED: fentaNYL 100 MCG/2 ML INJECTION As Ordered ONE (16:48)
[2023-05-31] MEDS ORDERED: BACITRACIN OINTMENT 30GM TUBE As Ordered ONE (16:51)
[2023-05-31] MEDS ORDERED: ceFAZolin 2 GM/D5W 50 ML IV BAG As Ordered ONE (17:34)
[2023-05-31] MEDS ORDERED: HYDROmorphone HCL 2MG/ML 1ML VIAL As Ordered ONE (18:11)
[2023-05-31] MEDS ORDERED: KETOROLAC 60MG 2ML VIAL As Ordered ONE (18:24)
[2023-05-31] MEDS ORDERED: ONDANSETRON 4MG 2ML VIAL As Ordered ONE (18:24)
[2023-05-31] MEDS ORDERED: LR 1,000 ML IV SCH (18:35)
[2023-05-31] MEDS ORDERED: fentaNYL 100 MCG/2 ML INJECTION IV PRN (18:35)
[2023-05-31 20:16] VITALS: BP 135/81; TEMP 97.3; O2SAT 94
[2023-05-31 20:45] VITALS: BP 135/85; TEMP 97.7; O2SAT 97
[2023-05-31] MEDS ORDERED: LORATADINE 10 MG TAB PO SCH (21:00)
[2023-05-31] MEDS ORDERED: ATORVASTATIN 20 MG TAB PO SCH (21:00)
[2023-05-31 21:38] VITALS: BP 143/92; TEMP 98.6; O2SAT 94
[2023-05-31 22:31] VITALS: BP 128/74; TEMP 97.9; O2SAT 90
[2023-06-01] MEDS: ceFAZolin SOD 1 GM in D5W MINI-BAG PLUS 50 ML IV SCH ×2 (01:02→09:35)
[2023-06-01 02:00] VITALS: BP 121/58; TEMP 97.5; O2SAT 97
[2023-06-01] MEDS: INSULIN LISPRO (NovoLOG) PER UNIT SC SCH ×3 (06:00→13:20)
[2023-06-01 06:24] VITALS: BP 141/84; TEMP 98.1; O2SAT 97
[2023-06-01 09:34] VITALS: BP 128/79
[2023-06-01] MEDS: CARVedilol 12.5 MG TAB PO SCH (09:34)
[2023-06-01] MEDS: amLODIPine 5 MG TAB PO SCH (09:35)
== END 2023-06-01 13:50 | disposition home or self-care (01) ==
LOC: M MS5PR 18:45
PROVIDERS: ADMIT Orthopaedic Surgery Hand Surgery; ATTEND Internal Medicine Nephrology
DX: S66.124A Laceration of flexor muscle, fascia and tendon of right ring finger at wrist and hand level, initial encounter (principal); W26.1XXA Contact with sword or dagger, initial encounter; Y92.89 Other specified places as the place of occurrence of the external cause; Y93.9 Activity, unspecified; Y99.9 Unspecified external cause status; Z79.82 Long term (current) use of aspirin; Z79.899 Other long term (current) drug therapy; Z88.8 Allergy status to other drugs, medicaments and biological substances; Z88.5 Allergy status to narcotic agent
CPT/HCPCS: 26356; 36415; 80048; 96365; 96366; J0665; J0690; J1170; J1885; J2250; J2405; J3010

== ENCOUNTER → 2023-08-20 | Outpatient (CLI) | payer OTHER ==
[~2023-08-20] MED LIST changes: +ALBU8.5H INH; +AMLO1TAB24 PO; +FERR1TAB8 PO; +LORA-1041 PO; +POTA4.25 PO; +SENN8.6T58 PO; +SUMA50TA2 PO
== END ==
LOC: M RAD 09:55
PROVIDERS: ATTEND Otolaryngology
DX: E04.2 Nontoxic multinodular goiter (principal)

== ENCOUNTER 2023-09-17 09:55 | Day surgery (SDC) | payer OTHER ==
[~2023-09-17] VITALS: Ht 185.4 cm; Wt 93.2 kg
[~2023-09-17 09:55] MED LIST changes: +NS 1,000 ML IV ONE
[2023-09-17] MEDS ORDERED: fentaNYL 100 MCG/2 ML INJECTION As Ordered ONE (11:23)
[2023-09-17] MEDS ORDERED: LIDOCAINE 2% 100MG/5ML SDV (FOR ANES.) As Ordered ONE (11:24)
[2023-09-17] MEDS ORDERED: propofoL 200 MG/20 ML VIAL As Ordered ONE (11:41)
[2023-09-17 12:21] VITALS: TEMP 97
[2023-09-17 12:45] VITALS: BP 121/75; O2SAT 96
== END 2023-09-17 13:00 | disposition home or self-care (01) ==
LOC: M OPP 09:55
PROVIDERS: ATTEND Internal Medicine Gastroenterology
DX: D12.3 Benign neoplasm of transverse colon (principal); D12.2 Benign neoplasm of ascending colon; K64.8 Other hemorrhoids; K57.30 Diverticulosis of large intestine without perforation or abscess without bleeding; Z86.010 Personal history of colon polyps; E11.9 Type 2 diabetes mellitus without complications; I10 Essential (primary) hypertension; E78.5 Hyperlipidemia, unspecified; K21.9 Gastro-esophageal reflux disease without esophagitis; Z79.82 Long term (current) use of aspirin; Z79.51 Long term (current) use of inhaled steroids; Z88.8 Allergy status to other drugs, medicaments and biological substances; Z88.5 Allergy status to narcotic agent; Z88.6 Allergy status to analgesic agent; Z79.84 Long term (current) use of oral hypoglycemic drugs
CPT/HCPCS: 43239; 45385; 88305; J3010

== ENCOUNTER → 2023-12-10 | Outpatient (CLI) | payer OTHER ==
[~2023-12-10] MED LIST changes: -NS 1,000 ML IV ONE
== END ==
LOC: M RAD 10:23
PROVIDERS: ATTEND Internal Medicine Nephrology
DX: N18.31 Chronic kidney disease, stage 3a (principal); N40.1 Benign prostatic hyperplasia with lower urinary tract symptoms

== ENCOUNTER → 2023-12-25 | Outpatient (CLI) | payer OTHER | LOC: M RAD 16:49 | PROVIDERS: ATTEND Physician Assistant | DX: N20.0 Calculus of kidney (principal) ==

== ENCOUNTER 2023-12-28 18:18 | Emergency (ER) | payer OTHER ==
[~2023-12-28] VITALS: Ht 185.4 cm; Wt 97.7 kg
[2023-12-28 21:30] VITALS: BP 150/82; TEMP 97.6; O2SAT 98
== END 2023-12-28 22:14 | disposition left against medical advice (07) ==
LOC: EDBD 18:18 → M ED 18:18
DX: Z53.21 Procedure and treatment not carried out due to patient leaving prior to being seen by health care provider (principal)

== ENCOUNTER → 2024-02-04 | Outpatient (CLI) | payer OTHER ==
[2024-02-04 11:33] LABS: HEMOGLOBIN 13.7 g/dl (13.5-17.5); MEAN CORPUSCULAR HEMOGLOBIN 28.5 pg (27.0-33.0); MEAN CORPUSCULAR HGB CONC 32.6 g/dl (32.0-36.5); MEAN CORPUSCULAR VOLUME 87.5 fl (80.0-96.0); PLATELET COUNT, AUTOMATED 216 10^3/uL (150-450); WHITE BLOOD COUNT 6.3 10^3/uL (4.0-10.0)
[2024-02-04 11:43] LABS: HEMOGLOBIN A1c 6.8 % (4.0-6.0)
[2024-02-04 11:53] LABS: C REACTIVE PROTEIN QUANTITATIV < 0.40 MG/DL (<1.0)
[2024-02-04 11:54] LABS: ALBUMIN 3.9 G/DL (3.2-5.2); ALKALINE PHOSPHATASE 76 U/L (46-116); ALT/SGPT 26 U/L (7.0-40); AST/SGOT 18 U/L (<34); BILIRUBIN,TOTAL 1.1 MG/DL (0.3-1.2); BLOOD UREA NITROGEN 23 MG/DL (9-23); CALCIUM LEVEL 9.4 MG/DL (8.3-10.6); CARBON DIOXIDE LEVEL 33 MMOL/L (20-31); CHLORIDE LEVEL 108 MMOL/L (98-107); CHOLESTEROL LEVEL 104 MG/DL (<200); CREATININE FOR GFR 1.32 MG/DL (0.70-1.30); GLOMERULAR FILTRATION RATE 58.5 (>49); GLUCOSE, FASTING 138 MG/DL (74-106); HDL CHOLESTEROL 35.8 MG/DL (>40); LDL CHOLESTEROL 46.6 MG/DL (<100); NON-HDL-C 68.2 MG/DL; POTASSIUM SERUM 4.3 MMOL/L (3.5-5.1); SODIUM LEVEL 142 MMOL/L (136-145); TOTAL PROTEIN 6.2 G/DL (5.7-8.2); TRIGLYCERIDES LEVEL 108 MG/DL (<150); VITAMIN B12 LEVEL 796 PG/ML (211-911)
[2024-02-04 11:55] LABS: FERRITIN 10.9 NG/ML (10.5-307.3); THYROID STIMULATING HORMONE 0.466 uIU/ML (0.55-4.78)
[2024-02-04 11:57] LABS: FREE T4 1.39 NG/DL (0.89-1.76)
[2024-02-04 12:04] LABS: CREATININE, URINE 487.1 MG/DL; MAU/CREAT RATIO 7.5 MCG/MG (0.0-30.0)
== END ==
LOC: M PLALAB 09:23
PROVIDERS: ATTEND Internal Medicine Hematology
DX: E11.9 Type 2 diabetes mellitus without complications (principal)

== ENCOUNTER → 2024-03-19 | Outpatient (REF) | payer OTHER | LOC: M LAB REF 17:12 | PROVIDERS: ATTEND Internal Medicine Nephrology | DX: N18.31 Chronic kidney disease, stage 3a (principal) ==

== ENCOUNTER → 2024-06-25 | Outpatient (CLI) | payer OTHER | LOC: M PLALAB 10:55 | PROVIDERS: ATTEND Physician Assistant | DX: Z12.5 Encounter for screening for malignant neoplasm of prostate (principal) ==

== ENCOUNTER → 2024-09-28 | Outpatient (CLI) | payer OTHER ==
[~2024-09-28] MED LIST changes: +ATOR-398 PO; -LIPI80TA PO
[2024-09-28 15:08] LABS: BASO % 0.4 % (0.0-1.0); EOS # 0.2 10^3/uL (0.0-0.5); HEMATOCRIT 43.3 % (42.0-52.0); HEMOGLOBIN 14.6 g/dl (13.5-17.5); LYMPH # 1.2 10^3/uL (1.5-5.0); LYMPH % 15.6 % (24.0-44.0); MEAN CORPUSCULAR HGB CONC 33.7 g/dl (32.0-36.5); MEAN CORPUSCULAR VOLUME 89.1 fl (80.0-96.0); MONO # 0.7 10^3/uL (0.0-0.8); MONO % 8.6 % (2.0-8.0); NEUTROPHILS # 5.8 10^3/uL (1.5-8.5); NEUTROPHILS % 73.1 % (36.0-66.0); PLATELET COUNT, AUTOMATED 218 10^3/uL (150-450); RED BLOOD COUNT 4.86 10^6/uL (4.30-6.10); WHITE BLOOD COUNT 7.9 10^3/uL (4.0-10.0)
[2024-09-28 15:32] LABS: C REACTIVE PROTEIN QUANTITATIV < 0.40 MG/DL (<1.0)
[2024-09-28 15:34] LABS: ALBUMIN 3.8 G/DL (3.2-5.2); ALKALINE PHOSPHATASE 85 U/L (40-129); ALT/SGPT 22 U/L (7.0-40); AST/SGOT 13 U/L (<34); BILIRUBIN,TOTAL 0.9 MG/DL (0.3-1.2); BLOOD UREA NITROGEN 26 MG/DL (9-23); CALCIUM LEVEL 9.7 MG/DL (8.3-10.6); CARBON DIOXIDE LEVEL 33 MMOL/L (20-31); CHLORIDE LEVEL 107 MMOL/L (98-107); CHOLESTEROL LEVEL 103 MG/DL (<200); CHOLESTEROL RISK RATIO 2.94 (<5); CREATININE FOR GFR 1.55 MG/DL (0.70-1.30); GLOMERULAR FILTRATION RATE 48.5 (>49); GLUCOSE, FASTING 230 MG/DL (74-106); LDL CHOLESTEROL 30.6 MG/DL (<100); POTASSIUM SERUM 4.2 MMOL/L (3.5-5.1); SODIUM LEVEL 143 MMOL/L (136-145); THYROID STIMULATING HORMONE 0.408 uIU/ML (0.55-4.78); TOTAL 25(OH) VITAMIN D 49.9 NG/ML (20.0-100.0); TOTAL PROTEIN 6.8 G/DL (5.7-8.2); TRIGLYCERIDES LEVEL 187 MG/DL (<150); VITAMIN B12 LEVEL 810 PG/ML (211-911)
[2024-09-28 15:36] LABS: FREE T4 1.35 NG/DL (0.89-1.76)
[2024-09-28 15:48] LABS: CREATININE, URINE 460.3 MG/DL; MAU/CREAT RATIO 10.2 MCG/MG (0.0-30.0)
[2024-09-28 15:50] LABS: HEMOGLOBIN A1c 6.8 % (4.0-6.0)
== END ==
LOC: M PLALAB 13:23
PROVIDERS: ATTEND Student in an Organized Health Care Education/Training Program
DX: E11.9 Type 2 diabetes mellitus without complications (principal)

== ENCOUNTER → 2024-12-04 | Outpatient (CLI) | payer OTHER | LOC: M RAD 12:56 | PROVIDERS: ATTEND Physician Assistant Medical | DX: S09.90XA Unspecified injury of head, initial encounter (principal); W18.30XA Fall on same level, unspecified, initial encounter; Y92.009 Unspecified place in unspecified non-institutional (private) residence as the place of occurrence of the external cause ==

== ENCOUNTER → 2024-12-23 | Outpatient (CLI) | payer OTHER | LOC: M RAD 10:00 | PROVIDERS: ATTEND Physician Assistant | DX: N20.0 Calculus of kidney (principal) ==

== ENCOUNTER → 2024-12-28 | Outpatient (CLI) | payer OTHER | LOC: M SLEEP HO 10:47 | PROVIDERS: ATTEND Internal Medicine Pulmonary Disease | DX: R06.83 Snoring (principal) ==

== ENCOUNTER → 2025-06-01 | Outpatient (CLI) | payer OTHER ==
[~2025-06-01] MED LIST changes: +LISI40TA10 PO; -LISI40TA4 PO
== END ==
LOC: M RAD 10:26
PROVIDERS: ATTEND Otolaryngology
DX: E04.2 Nontoxic multinodular goiter (principal)

== ENCOUNTER → 2025-06-29 | Outpatient (CLI) | payer OTHER | LOC: M RAD 10:06 | PROVIDERS: ATTEND Physician Assistant | DX: N20.0 Calculus of kidney (principal) ==

== ENCOUNTER → 2025-10-05 | Outpatient (REF) | payer OTHER | LOC: M SFHCPLAZ 10:02 | PROVIDERS: ATTEND Family Medicine | DX: Z53.9 Procedure and treatment not carried out, unspecified reason (principal) ==